=== PATIENT | female | born 1960 | race Two or more races ===

== ENCOUNTER 2018-01-27 19:57 | Inpatient (IN) | payer MEDICAID, OTHER ==
[~2018-01-27] VITALS: Ht 149.9 cm; Wt 113.0 kg
[2018-01-27] MEDS ORDERED: ALBUTEROL SULF 2.5 MG/0.5ML(0.5%) NEB SOLN NEB ONE (20:15)
[2018-01-27] MEDS ORDERED: IPRATROPIUM BROM 0.5 MG/2.5ML INH SOL NEB ONE (20:15)
[2018-01-27 20:59] LABS: Basophils # (auto) 0 uL; Basophils % (auto) 0.4 % (0.0-2.0); Eosinophils # (auto) 0.1 uL; Eosinophils % (auto) 0.6 % (0.0-7.0); Hematocrit 45.6 % (36.0-46.0); Hemoglobin 14.4 g/dL (12.2-16.2); Lymphocytes # (auto) 1.3 uL; Lymphocytes % (auto) 14.8 % (10.0-50.0); Mean Corpuscular Hgb Conc. 31.5 g/dL (32.0-36.0); Mean Corpuscular Volume 92.1 fL (80.0-100.0); Monocytes # (auto) 0.7 uL; Monocytes % (auto) 7.7 % (0.0-12.0); Neutrophils % (auto) 76.5 % (37.0-80.0); Nucleated Red Blood Cells % 0.1 %; Platelet Count (auto) 217 10^3/uL (140-450); Red Blood Cells 4.95 10^6/uL (4.0-5.20); Red Cell Distribution Width 16.9 % (11.8-14.3); White Blood Cell 9.1 10^3/uL (4.4-10.8)
[2018-01-27 21:06] LABS: INR 1.18 (0.9-1.15); Partial Thromboplastin Time 27.9 sec (22.64-33.71); Prothrombin Time 12.9 sec (9.37-12.3)
[2018-01-27 21:11] LABS: Alanine Aminotransferase 22 U/L (13-56); Albumin 2.6 g/dL (3.4-5.0); Anion Gap 6 (5-15); Aspartate Aminotransferase 21 U/L (15-37); BUN/Creatinine Ratio 9.1; Blood Urea Nitrogen 8 mg/dL (7-18); Calcium 7.4 mg/dL (8.5-10.1); Carbon Dioxide 35 mmol/L (21-32); Chloride 102 mmol/L (98-107); GFR African American 85 mL/min; GFR Non-African American 70 mL/min; Glucose 112 mg/dL (74-106); Magnesium 1.9 mg/dL (1.6-2.6); Potassium 3.6 mmol/L (3.5-5.1); Sodium 143 mmol/L (136-145)
[2018-01-27 21:16] LABS: Alkaline Phosphatase 85 U/L (45-117); Bilirubin, Total 0.9 mg/dL (0.2-1.0); Total Protein 6.2 g/dL (6.4-8.2)
[2018-01-28] VITALS (9 sets, daily range): BP systolic 105–123; BP diastolic 48–82
[2018-01-28] MEDS ORDERED: FUROSEMIDE 40 MG/4 ML VIAL IV ONE ×2 (02:00→02:45)
[2018-01-28] MEDS ORDERED: ONDANSETRON HCL 4 MG/2 ML VIAL IV ONE (02:45)
[2018-01-28] MEDS ORDERED: ONDANSETRON ODT 4 MG TAB PO ONE (03:00)
[2018-01-28] MEDS ORDERED: cloNIDine HCL 0.1 MG TAB PO PRN (03:15)
[2018-01-28] MEDS ORDERED: MORPHINE SULFATE 4 MG/ML SYR/VIAL IV PRN (03:15)
[2018-01-28] MEDS ORDERED: TEMAZEPAM 15 MG CAP PO PRN (03:15)
[2018-01-28] MEDS ORDERED: ONDANSETRON HCL 4 MG/2 ML VIAL IV PRN (03:15)
[2018-01-28] MEDS ORDERED: ACETAMINOPHEN 325 MG TAB PO PRN (03:15)
[2018-01-28] MEDS ORDERED: NITROGLYCERIN 0.4 MG SL TAB SL PRN (03:15)
[2018-01-28] MEDS ORDERED: HYDROcodone-ACET 5/325MG TAB PO PRN (03:15)
[2018-01-28] MEDS ORDERED: IPRATROPIUM BROM 0.5 MG/2.5ML INH SOL NEB PRN (03:15)
[2018-01-28] MEDS ORDERED: ALBUTEROL SULF 2.5 MG/0.5ML(0.5%) NEB SOLN NEB PRN (03:15)
[2018-01-28] MEDS ORDERED: FUROSEMIDE 20 MG/2 ML VIAL IV SCH (06:00)
[2018-01-28 07:11] LABS: Urine Bacteria NONE SEEN /hpf (None Seen); Urine Blood Negative /uL (Negative); Urine Specific Gravity 1.005 (1.001-1.035); Urine WBC None Seen /hpf (0 - 5)
[2018-01-28] MEDS ORDERED: LORazepam 2MG/ML-1ML VIAL IV PRN (09:30)
[2018-01-28] MEDS ORDERED: FAMOTIDINE 20 MG TAB PO SCH (10:00)
[2018-01-28] MEDS ORDERED: BISACODYL 10 MG RECT SUPP PR ONE (10:15)
[2018-01-28] MEDS ORDERED: PANTOPRAZOLE 40 MG/10 ML VIAL IV ONE (10:15)
[2018-01-28] MEDS ORDERED: FUROSEMIDE 20 MG/2 ML VIAL IV ONE (10:15)
[2018-01-28 10:35] LABS: BUN/Creatinine Ratio 6.7; Calcium 7.8 mg/dL (8.5-10.1); Potassium 3.8 mmol/L (3.5-5.1)
[2018-01-28] MEDS: BUDESONIDE (INHALATION) 0.5 MG/2 ML NEB NEB SCH ×2 (11:00→18:09)
[2018-01-28] MEDS: ENOXAPARIN SOD 40 MG/0.4 ML SYRINGE SC SCH (11:26)
[2018-01-28] MEDS: DOXYCYCLINE 100MG/250ML 100 ML IV SCH ×2 (11:27→22:20)
[2018-01-28] MEDS ORDERED: MIDAZOLAM DRIP 50 mg/50mL 50 ML IV ONE (12:10)
[2018-01-28] MEDS ORDERED: MIDAZOLAM HCL 5 MG/ML-1ML VIAL ONE ×2 (12:12→12:26)
[2018-01-28] MEDS: MIDAZOLAM DRIP 50 mg/50mL 50 ML IV SCH (12:27)
[2018-01-28] MEDS ORDERED: NOREPINEPHRINE 8 MG/250ML KIT 250 ML IV SCH (12:49)
[2018-01-28] MEDS ORDERED: fentaNYL Drip 2500mCg/250mlNS 250 ML IV ONE (12:55)
[2018-01-28] MEDS: fentaNYL Drip 2500mCg/250mlNS 250 ML IV SCH (12:55)
[2018-01-28] MEDS ORDERED: LORazepam 2MG/ML-1ML VIAL ONE (13:17)
[2018-01-28] MEDS: NOREPINEPHRINE 8 MG/250ML KIT 250 ML IV SCH (13:40)
[2018-01-28 13:57] LABS: Alcohol, Urine < 3.0 mg/dL (0-5); Amphetamine Screen, Urine NEGATIVE (NEGATIVE); Barbiturate Scree,Urine NEGATIVE (NEGATIVE); Benzodiazephine Screen, Urine NEGATIVE (NEGATIVE); Cannabinoid Screen, Urine NEGATIVE (NEGATIVE); Cocaine Screen, Urine NEGATIVE (NEGATIVE); Opiate Scree,Urine NEGATIVE (NEGATIVE); Phencyclidine Screen, Urine NEGATIVE (NEGATIVE)
[2018-01-28] MEDS ORDERED: LORazepam 2MG/ML-1ML VIAL IV ONE (14:00)
[2018-01-28] MEDS: ALBUTEROL SULF 2.5 MG/0.5ML(0.5%) NEB SOLN NEB SCH ×3 (14:10→22:21)
[2018-01-28] MEDS: IPRATROPIUM BROM 0.5 MG/2.5ML INH SOL NEB SCH ×3 (14:10→22:21)
[2018-01-28] MEDS ORDERED: MIDAZOLAM HCL 5 MG/ML-1ML VIAL IV ONE ×2 (14:30)
[2018-01-28] MEDS: PROPOFOL 100 ML IV SCH (14:36)
[2018-01-28] MEDS ORDERED: FUROSEMIDE INJECTION 500 MG in D5W 5% 450 ML IV SCH (14:45)
[2018-01-28] MEDS: methylPREDNISolone SOD SUCC 40 MG/ML VL IV SCH ×2 (14:47→21:57)
[2018-01-28] MEDS ORDERED: FUROSEMIDE 40 MG/4 ML VIAL IV SCH (18:00)
[2018-01-29] VITALS (70 sets, daily range): BP systolic 87–116; BP diastolic 43–67
[2018-01-29] MEDS: ALBUTEROL SULF 2.5 MG/0.5ML(0.5%) NEB SOLN NEB SCH ×6 (02:24→22:14)
[2018-01-29] MEDS: IPRATROPIUM BROM 0.5 MG/2.5ML INH SOL NEB SCH ×6 (02:24→22:14)
[2018-01-29] MEDS: methylPREDNISolone SOD SUCC 40 MG/ML VL IV SCH ×3 (06:00→22:10)
[2018-01-29] MEDS: BUDESONIDE (INHALATION) 0.5 MG/2 ML NEB NEB SCH ×2 (06:33→18:05)
[2018-01-29] MEDS: PROPOFOL 100 ML IV SCH ×2 (07:39→17:58)
[2018-01-29 08:10] LABS: Basophils # (auto) 0 uL; Basophils % (auto) 0.1 % (0.0-2.0); Eosinophils # (auto) 0 uL; Hematocrit 45.6 % (36.0-46.0); Hemoglobin 14.7 g/dL (12.2-16.2); Lymphocytes # (auto) 0.4 uL; Lymphocytes % (auto) 4.5 % (10.0-50.0); Mean Corpuscular Hgb Conc. 32.2 g/dL (32.0-36.0); Mean Corpuscular Volume 89.9 fL (80.0-100.0); Monocytes # (auto) 0.4 uL; Monocytes % (auto) 4.2 % (0.0-12.0); Neutrophils # (auto) 8.3 uL; Neutrophils % (auto) 91.2 % (37.0-80.0); Platelet Count (auto) 217 10^3/uL (140-450); Red Blood Cells 5.07 10^6/uL (4.0-5.20); Red Cell Distribution Width 16.8 % (11.8-14.3); White Blood Cell 9.1 10^3/uL (4.4-10.8)
[2018-01-29 08:31] LABS: Albumin 2.7 g/dL (3.4-5.0); BUN/Creatinine Ratio 8.6; Calcium 7.5 mg/dL (8.5-10.1); Potassium 3.4 mmol/L (3.5-5.1); Total Protein 6.2 g/dL (6.4-8.2)
[2018-01-29] MEDS: DOXYCYCLINE 100MG/250ML 100 ML IV SCH ×2 (10:55→22:15)
[2018-01-29] MEDS: PANTOPRAZOLE 40 MG/10 ML VIAL IV SCH (10:55)
[2018-01-29] MEDS: ENOXAPARIN SOD 40 MG/0.4 ML SYRINGE SC SCH (10:55)
[2018-01-29] MEDS: MIDAZOLAM DRIP 50 mg/50mL 50 ML IV SCH ×4 (10:58→23:00)
[2018-01-29] MEDS ORDERED: FUROSEMIDE INJECTION 500 MG in D5W 5% 450 ML IV SCH (11:45)
[2018-01-29] MEDS ORDERED: LEVOTHYROXINE SODIUM 100 MCG/5 ML INJ IV ONE (12:30)
[2018-01-29] MEDS: fentaNYL Drip 2500mCg/250mlNS 250 ML IV SCH (12:50)
[2018-01-29] MEDS: NOREPINEPHRINE 8 MG/250ML KIT 250 ML IV SCH (13:40)
[2018-01-29] MEDS ORDERED: LIDOCAINE 1% (LOCAL ANESTH.) PF 5ml SDV ID ONE (17:15)
[2018-01-29] MEDS: POTASSIUM CHL 20MEQ/100ML 100 ML IV SCH ×2 (17:57→19:45)
[2018-01-29] MEDS: SODIUM CHLOR 0.9% PF (SALINE LOCK) 10ML VIAL/SYR IV SCH (22:10)
[2018-01-30] VITALS (104 sets, daily range): BP systolic 84–112; BP diastolic 34–67
[2018-01-30] MEDS: MIDAZOLAM DRIP 50 mg/50mL 50 ML IV SCH ×5 (02:00→19:30)
[2018-01-30] MEDS: IPRATROPIUM BROM 0.5 MG/2.5ML INH SOL NEB SCH ×6 (02:17→22:46)
[2018-01-30] MEDS: ALBUTEROL SULF 2.5 MG/0.5ML(0.5%) NEB SOLN NEB SCH ×6 (02:17→22:46)
[2018-01-30 03:59] LABS: Basophils # (auto) 0 uL; Basophils % (auto) 0.4 % (0.0-2.0); Eosinophils # (auto) 0 uL; Hematocrit 46.8 % (36.0-46.0); Hemoglobin 14.8 g/dL (12.2-16.2); Lymphocytes # (auto) 0.3 uL; Lymphocytes % (auto) 2.7 % (10.0-50.0); Mean Corpuscular Hemoglobin 28.4 pg (28.0-32.0); Mean Corpuscular Hgb Conc. 31.6 g/dL (32.0-36.0); Mean Corpuscular Volume 89.7 fL (80.0-100.0); Monocytes # (auto) 0.4 uL; Monocytes % (auto) 3.7 % (0.0-12.0); Neutrophils # (auto) 9.8 uL; Neutrophils % (auto) 93.2 % (37.0-80.0); Platelet Count (auto) 192 10^3/uL (140-450); Red Blood Cells 5.21 10^6/uL (4.0-5.20); Red Cell Distribution Width 16.5 % (11.8-14.3); White Blood Cell 10.5 10^3/uL (4.4-10.8)
[2018-01-30 04:23] LABS: Albumin 2.7 g/dL (3.4-5.0); BUN/Creatinine Ratio 16.7; Bilirubin, Total 0.8 mg/dL (0.2-1.0); Calcium 8.2 mg/dL (8.5-10.1); Potassium 3.4 mmol/L (3.5-5.1); Total Protein 6.2 g/dL (6.4-8.2)
[2018-01-30] MEDS: methylPREDNISolone SOD SUCC 40 MG/ML VL IV SCH ×3 (06:00→21:26)
[2018-01-30] MEDS: SODIUM CHLOR 0.9% PF (SALINE LOCK) 10ML VIAL/SYR IV SCH ×2 (10:00→21:27)
[2018-01-30] MEDS: BUDESONIDE (INHALATION) 0.5 MG/2 ML NEB NEB SCH ×2 (10:06→18:25)
[2018-01-30] MEDS: PANTOPRAZOLE 40 MG/10 ML VIAL IV SCH (10:38)
[2018-01-30] MEDS: acetaZOLAMIDE SODIUM 500 MG VL IV SCH (10:39)
[2018-01-30] MEDS: ENOXAPARIN SOD 40 MG/0.4 ML SYRINGE SC SCH (10:39)
[2018-01-30] MEDS: LEVOTHYROXINE SODIUM 100 MCG/5 ML INJ IV SCH (10:39)
[2018-01-30] MEDS: fentaNYL Drip 2500mCg/250mlNS 250 ML IV SCH (10:40)
[2018-01-30] MEDS: DOXYCYCLINE 100MG/250ML 100 ML IV SCH (10:40)
[2018-01-30] MEDS ORDERED: ACETYLCYSTEINE 10 %(100MG/ML) SOL 4ML NEB SCH (12:00)
[2018-01-30] MEDS ORDERED: POTASSIUM CHL 10% (20 MEQ/15ML) 15ml ORAL SOLN GT ONE (12:00)
[2018-01-30] MEDS: ALBUMIN 25% 100 ML IV SCH ×2 (13:24→19:30)
[2018-01-30] MEDS: NOREPINEPHRINE 8 MG/250ML KIT 250 ML IV SCH (13:26)
[2018-01-30] MEDS: FREE WATER GT SCH ×3 (13:26→21:27)
[2018-01-30] MEDS: ACETYLCYSTEINE 10 %(100MG/ML) SOL 4ML NEB SCH ×2 (14:06→18:25)
[2018-01-30] MEDS: Nutren Pulmonary 1 Liter GT SCH (14:50)
[2018-01-30] MEDS: DOXYCYCLINE 100MG/250ML 250 ML IV SCH (21:26)
[2018-01-31] VITALS (105 sets, daily range): BP systolic 86–130; BP diastolic 34–73
[2018-01-31] MEDS: FREE WATER GT SCH ×6 (02:00→21:21)
[2018-01-31] MEDS: ALBUTEROL SULF 2.5 MG/0.5ML(0.5%) NEB SOLN NEB SCH ×6 (02:39→22:16)
[2018-01-31] MEDS: IPRATROPIUM BROM 0.5 MG/2.5ML INH SOL NEB SCH ×6 (02:39→22:16)
[2018-01-31] MEDS: ACETYLCYSTEINE 10 %(100MG/ML) SOL 4ML NEB SCH ×4 (02:40→22:16)
[2018-01-31] MEDS: ALBUMIN 25% 100 ML IV SCH (03:24)
[2018-01-31] MEDS: MIDAZOLAM DRIP 50 mg/50mL 50 ML IV SCH ×5 (03:26→20:20)
[2018-01-31 04:16] LABS: Basophils # (auto) 0 uL; Basophils % (auto) 0.1 % (0.0-2.0); Eosinophils # (auto) 0 uL; Hematocrit 38.2 % (36.0-46.0); Hemoglobin 12.1 g/dL (12.2-16.2); Lymphocytes # (auto) 0.3 uL; Mean Corpuscular Hemoglobin 28.9 pg (28.0-32.0); Mean Corpuscular Hgb Conc. 31.7 g/dL (32.0-36.0); Mean Corpuscular Volume 91.1 fL (80.0-100.0); Monocytes # (auto) 0.3 uL; Monocytes % (auto) 3.4 % (0.0-12.0); Neutrophils # (auto) 8.3 uL; Neutrophils % (auto) 93.5 % (37.0-80.0); Platelet Count (auto) 156 10^3/uL (140-450); Red Cell Distribution Width 16.7 % (11.8-14.3); White Blood Cell 8.9 10^3/uL (4.4-10.8)
[2018-01-31 04:29] LABS: BUN/Creatinine Ratio 30.8; Calcium 6.9 mg/dL (8.5-10.1)
[2018-01-31 04:31] LABS: Potassium 2.7 mmol/L (3.5-5.1)
[2018-01-31] MEDS: methylPREDNISolone SOD SUCC 40 MG/ML VL IV SCH ×3 (05:21→21:21)
[2018-01-31] MEDS: POTASSIUM CHL 20MEQ/100ML 100 ML IV SCH ×2 (05:52→07:33)
[2018-01-31] MEDS ORDERED: POTASSIUM CHL 20MEQ/100ML 100 ML IV ONE (05:52)
[2018-01-31] MEDS: ENOXAPARIN SOD 40 MG/0.4 ML SYRINGE SC SCH (09:48)
[2018-01-31] MEDS: LEVOTHYROXINE SODIUM 100 MCG/5 ML INJ IV SCH (09:48)
[2018-01-31] MEDS: PANTOPRAZOLE 40 MG/10 ML VIAL IV SCH (09:48)
[2018-01-31] MEDS: acetaZOLAMIDE SODIUM 500 MG VL IV SCH (09:48)
[2018-01-31 09:49] LABS: Magnesium 2.3 mg/dL (1.6-2.6); Phosphorus 3.1 mg/dL (2.5-4.90)
[2018-01-31] MEDS: DOXYCYCLINE 100MG/250ML 250 ML IV SCH ×2 (09:50→21:22)
[2018-01-31] MEDS: SODIUM CHLOR 0.9% PF (SALINE LOCK) 10ML VIAL/SYR IV SCH ×2 (09:50→21:21)
[2018-01-31] MEDS: BUDESONIDE (INHALATION) 0.5 MG/2 ML NEB NEB SCH ×2 (10:40→22:16)
[2018-01-31] MEDS ORDERED: POTASSIUM CHL 10% (20 MEQ/15ML) 15ml ORAL SOLN GT ONE (11:15)
[2018-01-31] MEDS ORDERED: FUROSEMIDE 40 MG/4 ML VIAL IV ONE (11:15)
[2018-01-31] MEDS: fentaNYL Drip 2500mCg/250mlNS 250 ML IV SCH ×2 (12:41→18:41)
[2018-01-31] MEDS: NOREPINEPHRINE 8 MG/250ML KIT 250 ML IV SCH ×2 (13:40→16:18)
[2018-01-31] MEDS: PROPOFOL 100 ML IV SCH (13:40)
[2018-01-31] MEDS: FUROSEMIDE 40 MG/4 ML VIAL IV SCH (17:29)
[2018-01-31] MEDS: POTASSIUM CHL 10% (20 MEQ/15ML) 15ml ORAL SOLN GT SCH (21:21)
[2018-02-01] VITALS (95 sets, daily range): BP systolic 92–138; BP diastolic 48–79
[2018-02-01] MEDS: FREE WATER GT SCH ×6 (01:40→22:15)
[2018-02-01] MEDS: ALBUTEROL SULF 2.5 MG/0.5ML(0.5%) NEB SOLN NEB SCH ×7 (02:00→22:26)
[2018-02-01] MEDS: IPRATROPIUM BROM 0.5 MG/2.5ML INH SOL NEB SCH ×7 (02:00→22:26)
[2018-02-01 04:58] LABS: BUN/Creatinine Ratio 38.1; Calcium 8.8 mg/dL (8.5-10.1); Potassium 4.3 mmol/L (3.5-5.1)
[2018-02-01] MEDS: methylPREDNISolone SOD SUCC 40 MG/ML VL IV SCH ×3 (05:10→22:12)
[2018-02-01] MEDS: FUROSEMIDE 40 MG/4 ML VIAL IV SCH ×2 (05:10→17:42)
[2018-02-01] MEDS: ACETYLCYSTEINE 10 %(100MG/ML) SOL 4ML NEB SCH ×3 (06:01→22:26)
[2018-02-01] MEDS: BUDESONIDE (INHALATION) 0.5 MG/2 ML NEB NEB SCH ×2 (09:34→22:26)
[2018-02-01] MEDS: ENOXAPARIN SOD 40 MG/0.4 ML SYRINGE SC SCH (10:00)
[2018-02-01] MEDS: SODIUM CHLOR 0.9% PF (SALINE LOCK) 10ML VIAL/SYR IV SCH ×2 (10:19→22:13)
[2018-02-01] MEDS: PANTOPRAZOLE 40 MG/10 ML VIAL IV SCH (10:19)
[2018-02-01] MEDS: LEVOTHYROXINE SODIUM 100 MCG/5 ML INJ IV SCH (10:19)
[2018-02-01] MEDS: POTASSIUM CHL 10% (20 MEQ/15ML) 15ml ORAL SOLN GT SCH ×2 (10:19→22:14)
[2018-02-01] MEDS: DOXYCYCLINE 100MG/250ML 250 ML IV SCH ×2 (10:20→22:10)
[2018-02-01] MEDS: MIDAZOLAM DRIP 50 mg/50mL 50 ML IV SCH ×3 (10:21→22:27)
[2018-02-01] MEDS ORDERED: ENOXAPARIN SOD 120 MG/0.8 ML SYRINGE SC ONE (11:45)
[2018-02-01] MEDS: PROPOFOL 100 ML IV SCH (13:40)
[2018-02-01] MEDS: Nutren Pulmonary 1 Liter GT SCH (15:17)
[2018-02-01] MEDS: ENOXAPARIN SOD 100 MG/1 ML SYRINGE SC SCH (22:15)
[2018-02-02] VITALS (106 sets, daily range): BP systolic 94–125; BP diastolic 34–72
[2018-02-02] MEDS: FREE WATER GT SCH ×6 (02:00→23:05)
[2018-02-02] MEDS: fentaNYL Drip 2500mCg/250mlNS 250 ML IV SCH ×2 (03:04→15:50)
[2018-02-02] MEDS: MIDAZOLAM DRIP 50 mg/50mL 50 ML IV SCH ×5 (03:16→18:40)
[2018-02-02] MEDS: IPRATROPIUM BROM 0.5 MG/2.5ML INH SOL NEB SCH ×6 (03:40→22:19)
[2018-02-02] MEDS: ALBUTEROL SULF 2.5 MG/0.5ML(0.5%) NEB SOLN NEB SCH ×6 (03:40→22:19)
[2018-02-02 03:58] LABS: Basophils # (auto) 0 uL; Eosinophils # (auto) 0 uL; Hematocrit 46.4 % (36.0-46.0); Lymphocytes # (auto) 0.2 uL; Lymphocytes % (auto) 2.5 % (10.0-50.0); Mean Corpuscular Hemoglobin 29.1 pg (28.0-32.0); Mean Corpuscular Hgb Conc. 32.4 g/dL (32.0-36.0); Mean Corpuscular Volume 89.8 fL (80.0-100.0); Monocytes # (auto) 0.5 uL; Monocytes % (auto) 7.5 % (0.0-12.0); Neutrophils # (auto) 6.3 uL; Platelet Count (auto) 170 10^3/uL (140-450); Red Blood Cells 5.16 10^6/uL (4.0-5.20); Red Cell Distribution Width 16.8 % (11.8-14.3)
[2018-02-02 04:14] LABS: BUN/Creatinine Ratio 29.7; Calcium 8.7 mg/dL (8.5-10.1); Potassium 3.6 mmol/L (3.5-5.1)
[2018-02-02 04:30] LABS: INR 1.19 (0.9-1.15); Partial Thromboplastin Time 32.6 sec (22.64-33.71)
[2018-02-02] MEDS: FUROSEMIDE 40 MG/4 ML VIAL IV SCH ×3 (06:08→22:09)
[2018-02-02] MEDS: methylPREDNISolone SOD SUCC 40 MG/ML VL IV SCH ×3 (06:08→22:09)
[2018-02-02] MEDS: ACETYLCYSTEINE 10 %(100MG/ML) SOL 4ML NEB SCH ×3 (06:35→22:18)
[2018-02-02] MEDS: POTASSIUM CHL 10% (20 MEQ/15ML) 15ml ORAL SOLN GT SCH ×2 (10:11→23:04)
[2018-02-02] MEDS: SODIUM CHLOR 0.9% PF (SALINE LOCK) 10ML VIAL/SYR IV SCH ×2 (10:11→22:10)
[2018-02-02] MEDS: DOXYCYCLINE 100MG/250ML 250 ML IV SCH (10:11)
[2018-02-02] MEDS: LEVOTHYROXINE SODIUM 100 MCG/5 ML INJ IV SCH (10:11)
[2018-02-02] MEDS: PANTOPRAZOLE 40 MG/10 ML VIAL IV SCH ×2 (10:11→22:08)
[2018-02-02] MEDS: ENOXAPARIN SOD 100 MG/1 ML SYRINGE SC SCH (10:12)
[2018-02-02] MEDS: BUDESONIDE (INHALATION) 0.5 MG/2 ML NEB NEB SCH ×2 (10:15→18:52)
[2018-02-02] MEDS ORDERED: LEVOFLOXACIN 750MG 150 ML IV ONE (12:45)
[2018-02-02] MEDS ORDERED: LACTULOSE 20Gm/30ML SOLN GT ONE (13:00)
[2018-02-02] MEDS: PROPOFOL 100 ML IV SCH (13:36)
[2018-02-02] MEDS: NOREPINEPHRINE 8 MG/250ML KIT 250 ML IV SCH (13:40)
[2018-02-02] MEDS: METOCLOPRAMIDE HCL 10 MG/10ml ORAL soln GT SCH ×2 (13:44→22:06)
[2018-02-02 20:12] LABS: Basophils # (auto) 0 uL; Basophils % (auto) 0.1 % (0.0-2.0); Eosinophils # (auto) 0 uL; Hematocrit 47.7 % (36.0-46.0); Lymphocytes # (auto) 0.2 uL; Lymphocytes % (auto) 2.2 % (10.0-50.0); Mean Corpuscular Hemoglobin 28.2 pg (28.0-32.0); Mean Corpuscular Hgb Conc. 31.5 g/dL (32.0-36.0); Mean Corpuscular Volume 89.5 fL (80.0-100.0); Monocytes # (auto) 0.6 uL; Monocytes % (auto) 6.8 % (0.0-12.0); Neutrophils # (auto) 7.4 uL; Neutrophils % (auto) 90.9 % (37.0-80.0); Nucleated Red Blood Cells % 0.1 %; Platelet Count (auto) 166 10^3/uL (140-450); Red Blood Cells 5.33 10^6/uL (4.0-5.20); Red Cell Distribution Width 16.8 % (11.8-14.3); White Blood Cell 8.1 10^3/uL (4.4-10.8)
[2018-02-02] MEDS ORDERED: HEPARIN SODIUM (PORCINE) 5000 UNITS/ML 1ML VIAL IV ONE (20:15)
[2018-02-02 20:25] LABS: INR 1.22 (0.9-1.15); Partial Thromboplastin Time 34.6 sec (22.64-33.71); Prothrombin Time 13.3 sec (9.37-12.3)
[2018-02-02] MEDS: HEPARIN DRIP/D5W 100UNITS/ML 250 ML IV SCH (20:25)
[2018-02-02] MEDS: ATRACURIUM BESYLATE 1,000 MG in D5W 5% 150 ML IV SCH (22:38)
[2018-02-02] MEDS: LACTULOSE 20Gm/30ML SOLN GT SCH (23:04)
[2018-02-03] VITALS (107 sets, daily range): BP systolic 89–159; BP diastolic 46–94
[2018-02-03] MEDS: MIDAZOLAM DRIP 50 mg/50mL 50 ML IV SCH ×5 (00:28→22:18)
[2018-02-03] MEDS: FREE WATER GT SCH ×5 (01:41→22:00)
[2018-02-03] MEDS: IPRATROPIUM BROM 0.5 MG/2.5ML INH SOL NEB SCH ×6 (02:37→22:09)
[2018-02-03] MEDS: ALBUTEROL SULF 2.5 MG/0.5ML(0.5%) NEB SOLN NEB SCH ×6 (02:37→22:09)
[2018-02-03 03:20] LABS: Basophils # (auto) 0 uL; Basophils % (auto) 0.1 % (0.0-2.0); Eosinophils # (auto) 0 uL; Hematocrit 48.2 % (36.0-46.0); Hemoglobin 15.3 g/dL (12.2-16.2); Lymphocytes # (auto) 0.2 uL; Lymphocytes % (auto) 2.7 % (10.0-50.0); Mean Corpuscular Hemoglobin 28.3 pg (28.0-32.0); Mean Corpuscular Hgb Conc. 31.8 g/dL (32.0-36.0); Monocytes # (auto) 0.7 uL; Monocytes % (auto) 8.9 % (0.0-12.0); Neutrophils # (auto) 6.7 uL; Neutrophils % (auto) 88.3 % (37.0-80.0); Platelet Count (auto) 161 10^3/uL (140-450); Red Blood Cells 5.42 10^6/uL (4.0-5.20); Red Cell Distribution Width 17.1 % (11.8-14.3); White Blood Cell 7.6 10^3/uL (4.4-10.8)
[2018-02-03 03:45] LABS: Albumin 3.1 g/dL (3.4-5.0); BUN/Creatinine Ratio 33.3; Calcium 8.4 mg/dL (8.5-10.1); Potassium 4.1 mmol/L (3.5-5.1)
[2018-02-03 03:47] LABS: Bilirubin, Total 2.2 mg/dL (0.2-1.0); Total Protein 6.2 g/dL (6.4-8.2)
[2018-02-03 04:06] LABS: INR 1.26 (0.9-1.15)
[2018-02-03 04:08] LABS: Partial Thromboplastin Time > 170.00 sec (22.64-33.71)
[2018-02-03] MEDS: fentaNYL Drip 2500mCg/250mlNS 250 ML IV SCH ×2 (05:35→22:19)
[2018-02-03] MEDS: ACETYLCYSTEINE 10 %(100MG/ML) SOL 4ML NEB SCH ×3 (05:55→18:32)
[2018-02-03] MEDS: methylPREDNISolone SOD SUCC 40 MG/ML VL IV SCH ×3 (06:04→22:20)
[2018-02-03] MEDS: FUROSEMIDE 40 MG/4 ML VIAL IV SCH (06:05)
[2018-02-03] MEDS: METOCLOPRAMIDE HCL 10 MG/10ml ORAL soln GT SCH ×3 (06:05→22:20)
[2018-02-03] MEDS: BUDESONIDE (INHALATION) 0.5 MG/2 ML NEB NEB SCH ×2 (09:56→18:32)
[2018-02-03] MEDS: LEVOFLOXACIN 750MG 150 ML IV SCH (10:40)
[2018-02-03] MEDS: SODIUM CHLOR 0.9% PF (SALINE LOCK) 10ML VIAL/SYR IV SCH ×2 (10:40→22:20)
[2018-02-03] MEDS: LACTULOSE 20Gm/30ML SOLN GT SCH ×2 (10:40→22:18)
[2018-02-03] MEDS: PANTOPRAZOLE 40 MG/10 ML VIAL IV SCH ×2 (10:40→22:20)
[2018-02-03] MEDS: LEVOTHYROXINE SODIUM 100 MCG/5 ML INJ IV SCH (10:41)
[2018-02-03] MEDS: HEPARIN DRIP/D5W 100UNITS/ML 250 ML IV SCH ×2 (10:43→21:15)
[2018-02-03] MEDS: POTASSIUM CHL 10% (20 MEQ/15ML) 15ml ORAL SOLN GT SCH ×2 (10:43→22:20)
[2018-02-03] MEDS: NOREPINEPHRINE 8 MG/250ML KIT 250 ML IV SCH (13:40)
[2018-02-03] MEDS: PROPOFOL 100 ML IV SCH (13:40)
[2018-02-03 14:09] LABS: INR 1.26 (0.9-1.15); Prothrombin Time 13.8 sec (9.37-12.3)
[2018-02-03 14:12] LABS: Partial Thromboplastin Time 159.9 sec (22.64-33.71)
[2018-02-03] MEDS: ATRACURIUM BESYLATE 1,000 MG in D5W 5% 150 ML IV SCH (21:17)
[2018-02-03] MEDS ORDERED: TPN PER PHARMACY 0 ML IV SCH (21:30)
[2018-02-03] MEDS ORDERED: AMINO ACID ELECTROLYTE INFUSIO 1,000 ML IV ONE (22:00)
[2018-02-04] VITALS (104 sets, daily range): BP systolic 98–134; BP diastolic 55–83
[2018-02-04] MEDS ORDERED: DEXTROSE (50%) 50ML SYRG IV SCH
[2018-02-04] MEDS: ACCU-CHEK COMFORT CURVE STRIP VI SCH ×4 (00:25→18:00)
[2018-02-04] MEDS: InsuLIN REG 1unit/0.01ml Soln (100units/ml) SC SCH ×4 (00:26→18:41)
[2018-02-04] MEDS: FREE WATER GT SCH ×6 (01:54→21:51)
[2018-02-04] MEDS: ALBUTEROL SULF 2.5 MG/0.5ML(0.5%) NEB SOLN NEB SCH ×6 (02:39→22:17)
[2018-02-04] MEDS: IPRATROPIUM BROM 0.5 MG/2.5ML INH SOL NEB SCH ×6 (02:39→22:17)
[2018-02-04] MEDS: MIDAZOLAM DRIP 50 mg/50mL 50 ML IV SCH ×2 (03:53→15:30)
[2018-02-04 04:00] LABS: Albumin 2.9 g/dL (3.4-5.0); BUN/Creatinine Ratio 42.2; Bilirubin, Total 2.1 mg/dL (0.2-1.0); Calcium 8.1 mg/dL (8.5-10.1); Phosphorus 2.3 mg/dL (2.5-4.90); Potassium 4.3 mmol/L (3.5-5.1); Pre Albumin 33.8 mg/dL (20.0-40.0); Total Protein 5.8 g/dL (6.4-8.2)
[2018-02-04] MEDS: methylPREDNISolone SOD SUCC 40 MG/ML VL IV SCH ×3 (06:24→21:57)
[2018-02-04] MEDS: METOCLOPRAMIDE HCL 10 MG/10ml ORAL soln GT SCH ×3 (06:25→21:51)
[2018-02-04 07:24] LABS: INR 1.22 (0.9-1.15); Partial Thromboplastin Time 58.3 sec (22.64-33.71); Prothrombin Time 13.3 sec (9.37-12.3)
[2018-02-04] MEDS: ACETYLCYSTEINE 10 %(100MG/ML) SOL 4ML NEB SCH ×3 (07:35→22:17)
[2018-02-04] MEDS: BUDESONIDE (INHALATION) 0.5 MG/2 ML NEB NEB SCH ×2 (07:35→18:59)
[2018-02-04] MEDS ORDERED: HEPARIN DRIP/D5W 100UNITS/ML 250 ML IV SCH (08:45)
[2018-02-04] MEDS ORDERED: TEMAZEPAM 15 MG CAP PO PRN (10:00)
[2018-02-04] MEDS ORDERED: LORazepam 2MG/ML-1ML VIAL IV PRN (10:00)
[2018-02-04] MEDS ORDERED: HYDROcodone-ACET 5/325MG TAB PO PRN (10:00)
[2018-02-04] MEDS ORDERED: MORPHINE SULFATE 4 MG/ML SYR/VIAL IV PRN (10:00)
[2018-02-04] MEDS ORDERED: FUROSEMIDE 40 MG/4 ML VIAL IV SCH (10:00)
[2018-02-04 10:46] LABS: Basophils # (auto) 0 uL; Basophils % (auto) 0.3 % (0.0-2.0); Eosinophils # (auto) 0 uL; Hematocrit 48.4 % (36.0-46.0); Hemoglobin 15.1 g/dL (12.2-16.2); Lymphocytes # (auto) 0.2 uL; Lymphocytes % (auto) 2.6 % (10.0-50.0); Mean Corpuscular Hemoglobin 28.4 pg (28.0-32.0); Mean Corpuscular Hgb Conc. 31.2 g/dL (32.0-36.0); Monocytes # (auto) 0.6 uL; Monocytes % (auto) 6.5 % (0.0-12.0); Neutrophils # (auto) 8.7 uL; Neutrophils % (auto) 90.6 % (37.0-80.0); Nucleated Red Blood Cells % 0.2 %; Platelet Count (auto) 158 10^3/uL (140-450); Red Blood Cells 5.32 10^6/uL (4.0-5.20); Red Cell Distribution Width 16.9 % (11.8-14.3); White Blood Cell 9.6 10^3/uL (4.4-10.8)
[2018-02-04] MEDS: SODIUM CHLOR 0.9% PF (SALINE LOCK) 10ML VIAL/SYR IV SCH ×2 (11:37→21:51)
[2018-02-04] MEDS ORDERED: ALTEPLASE (RECOMBINANT) 100 MG in STERILE WATER 100 ML IV SCH (12:00)
[2018-02-04] MEDS: LEVOTHYROXINE SODIUM 100 MCG/5 ML INJ IV SCH (12:21)
[2018-02-04] MEDS: LACTULOSE 20Gm/30ML SOLN GT SCH ×2 (12:21→21:51)
[2018-02-04] MEDS: POTASSIUM CHL 10% (20 MEQ/15ML) 15ml ORAL SOLN GT SCH ×2 (12:21→21:51)
[2018-02-04] MEDS: PANTOPRAZOLE 40 MG/10 ML VIAL IV SCH ×2 (12:21→21:51)
[2018-02-04] MEDS: LEVOFLOXACIN 750MG 150 ML IV SCH (12:22)
[2018-02-04] MEDS: NOREPINEPHRINE 8 MG/250ML KIT 250 ML IV SCH (13:40)
[2018-02-04] MEDS: PROPOFOL 100 ML IV SCH (13:40)
[2018-02-04 15:05] LABS: INR 1.24 (0.9-1.15); Partial Thromboplastin Time 67.6 sec (22.64-33.71); Prothrombin Time 13.5 sec (9.37-12.3)
[2018-02-04] MEDS: fentaNYL Drip 2500mCg/250mlNS 250 ML IV SCH (16:26)
[2018-02-04] MEDS ORDERED: TPN PER PHARMACY IV NR ×10 (20:00)
[2018-02-04 21:37] LABS: INR 1.3 (0.9-1.15); Prothrombin Time 14.2 sec (9.37-12.3)
[2018-02-04 21:51] LABS: Partial Thromboplastin Time 75.2 sec (22.64-33.71)
[2018-02-05] VITALS (95 sets, daily range): BP systolic 47–153; BP diastolic 27–137
[2018-02-05] MEDS: ACCU-CHEK COMFORT CURVE STRIP VI SCH ×4 (01:30→18:30)
[2018-02-05] MEDS: InsuLIN REG 1unit/0.01ml Soln (100units/ml) SC SCH ×4 (01:37→18:00)
[2018-02-05] MEDS: FREE WATER GT SCH ×5 (01:55→20:00)
[2018-02-05] MEDS: IPRATROPIUM BROM 0.5 MG/2.5ML INH SOL NEB SCH ×5 (02:31→22:29)
[2018-02-05] MEDS: ALBUTEROL SULF 2.5 MG/0.5ML(0.5%) NEB SOLN NEB SCH ×4 (02:31→22:29)
[2018-02-05] MEDS: ATRACURIUM BESYLATE 1,000 MG in D5W 5% 150 ML IV SCH ×2 (04:25→20:58)
[2018-02-05 05:53] LABS: Basophils # (auto) 0.1 uL; Basophils % (auto) 0.6 % (0.0-2.0); Eosinophils # (auto) 0 uL; Hematocrit 47.8 % (36.0-46.0); Hemoglobin 14.9 g/dL (12.2-16.2); Lymphocytes # (auto) 0.2 uL; Mean Corpuscular Hemoglobin 28.7 pg (28.0-32.0); Mean Corpuscular Hgb Conc. 31.3 g/dL (32.0-36.0); Mean Corpuscular Volume 91.8 fL (80.0-100.0); Monocytes # (auto) 0.7 uL; Monocytes % (auto) 6.6 % (0.0-12.0); Neutrophils # (auto) 9.8 uL; Neutrophils % (auto) 90.8 % (37.0-80.0); Platelet Count (auto) 141 10^3/uL (140-450); Red Blood Cells 5.21 10^6/uL (4.0-5.20); Red Cell Distribution Width 17.2 % (11.8-14.3); White Blood Cell 10.7 10^3/uL (4.4-10.8)
[2018-02-05] MEDS: METOCLOPRAMIDE HCL 10 MG/10ml ORAL soln GT SCH ×3 (06:00→22:00)
[2018-02-05] MEDS: methylPREDNISolone SOD SUCC 40 MG/ML VL IV SCH ×2 (06:00→18:17)
[2018-02-05 06:02] LABS: INR 1.2 (0.9-1.15); Prothrombin Time 13.1 sec (9.37-12.3)
[2018-02-05] MEDS: BUDESONIDE (INHALATION) 0.5 MG/2 ML NEB NEB SCH ×2 (07:10→18:42)
[2018-02-05] MEDS: ACETYLCYSTEINE 10 %(100MG/ML) SOL 4ML NEB SCH ×2 (07:11→22:29)
[2018-02-05] MEDS: SODIUM CHLOR 0.9% PF (SALINE LOCK) 10ML VIAL/SYR IV SCH ×2 (10:00→22:00)
[2018-02-05] MEDS ORDERED: IOHEXOL 350 MG/ML 100ML IJ ONE (10:20)
[2018-02-05 10:26] LABS: Albumin 2.8 g/dL (3.4-5.0); BUN/Creatinine Ratio 34.9; Bilirubin, Total 2.5 mg/dL (0.2-1.0); Magnesium 2.5 mg/dL (1.6-2.6); Phosphorus 2.8 mg/dL (2.5-4.90); Potassium 5.2 mmol/L (3.5-5.1); Total Protein 5.8 g/dL (6.4-8.2)
[2018-02-05] MEDS ORDERED: FUROSEMIDE 40 MG/4 ML VIAL ONE (11:44)
[2018-02-05] MEDS ORDERED: FUROSEMIDE 100 MG/10ML VIAL IV ONE (11:45)
[2018-02-05] MEDS ORDERED: VANCOMYCIN PER PHARMACY 0 MG IV SCH (12:00)
[2018-02-05] MEDS: PANTOPRAZOLE 40 MG/10 ML VIAL IV SCH ×2 (12:13→22:00)
[2018-02-05] MEDS: LEVOFLOXACIN 750MG 150 ML IV SCH (12:13)
[2018-02-05] MEDS ORDERED: FLUCONAZOLE 200MG/100ML 100 ML IV ONE (12:15)
[2018-02-05] MEDS ORDERED: LIDOCAINE 2%HCL (LOCAL ANESTH.) INJ 20ML MDV ONE (12:26)
[2018-02-05] MEDS: MIDAZOLAM DRIP 50 mg/50mL 50 ML IV SCH ×3 (12:30→20:06)
[2018-02-05] MEDS ORDERED: SILDENAFIL CITRATE 20 MG TAB PO ONE (12:30)
[2018-02-05] MEDS: PROPOFOL 100 ML IV SCH (13:40)
[2018-02-05] MEDS: NOREPINEPHRINE 8 MG/250ML KIT 250 ML IV SCH (13:40)
[2018-02-05] MEDS: POTASSIUM CHL 10% (20 MEQ/15ML) 15ml ORAL SOLN GT SCH ×2 (13:53→22:00)
[2018-02-05] MEDS: NYSTATIN (MOUTH-THROAT) 500,000 UNITS/5 ML SUSP MT SCH ×3 (13:53→22:00)
[2018-02-05] MEDS: LEVOTHYROXINE SODIUM 100 MCG/5 ML INJ IV SCH (13:54)
[2018-02-05] MEDS: LACTULOSE 20Gm/30ML SOLN GT SCH ×2 (14:00→22:00)
[2018-02-05] MEDS: SILDENAFIL CITRATE 20 MG TAB PO SCH ×2 (14:30→20:21)
[2018-02-05] MEDS ORDERED: VANCOMYCIN 1,500 MG in D5W 5% 250 ML IV ONE (14:45)
[2018-02-05 17:24] LABS: Calcium 7.2 mg/dL (8.5-10.1); Potassium 4.3 mmol/L (3.5-5.1)
[2018-02-05] MEDS ORDERED: FUROSEMIDE 40 MG/4 ML VIAL IV SCH (18:00)
[2018-02-05] MEDS ORDERED: FUROSEMIDE 100 MG/10ML VIAL IV SCH (18:00)
[2018-02-05] MEDS ORDERED: FAT EMULSION IV NR ×9 (20:00)
[2018-02-05] MEDS ORDERED: POTASSIUM CHLORIDE IV NR ×9 (20:00)
[2018-02-05] MEDS ORDERED: POTASSIUM PHOSPHATE IV NR ×9 (20:00)
[2018-02-05] MEDS ORDERED: [UNRECOGNIZED DRUG - OTHER] IV NR ×9 (20:00)
[2018-02-05] MEDS: fentaNYL Drip 2500mCg/250mlNS 250 ML IV SCH (20:50)
[2018-02-05] MEDS: VANCOMYCIN 1GM/250ML 250 ML IV SCH (22:00)
[2018-02-06] VITALS (88 sets, daily range): BP systolic 38–177; BP diastolic 20–170
[2018-02-06] MEDS: InsuLIN REG 1unit/0.01ml Soln (100units/ml) SC SCH ×5 (00:30→23:38)
[2018-02-06] MEDS: MIDAZOLAM DRIP 50 mg/50mL 50 ML IV SCH ×5 (01:14→23:37)
[2018-02-06] MEDS: ALBUMIN 25% 100 ML IV SCH ×2 (01:45→10:56)
[2018-02-06] MEDS: FREE WATER GT SCH ×4 (02:00→20:00)
[2018-02-06] MEDS: ALBUTEROL SULF 2.5 MG/0.5ML(0.5%) NEB SOLN NEB SCH ×6 (02:48→22:39)
[2018-02-06] MEDS: IPRATROPIUM BROM 0.5 MG/2.5ML INH SOL NEB SCH ×6 (02:48→22:39)
[2018-02-06 04:01] LABS: Basophils # (auto) 0 uL; Basophils % (auto) 0.3 % (0.0-2.0); Eosinophils # (auto) 0 uL; Hematocrit 44.8 % (36.0-46.0); Hemoglobin 14.1 g/dL (12.2-16.2); Lymphocytes # (auto) 0.2 uL; Lymphocytes % (auto) 1.3 % (10.0-50.0); Mean Corpuscular Hemoglobin 28.3 pg (28.0-32.0); Mean Corpuscular Hgb Conc. 31.5 g/dL (32.0-36.0); Mean Corpuscular Volume 89.7 fL (80.0-100.0); Monocytes # (auto) 0.8 uL; Monocytes % (auto) 5.8 % (0.0-12.0); Neutrophils # (auto) 13.1 uL; Neutrophils % (auto) 92.6 % (37.0-80.0); Platelet Count (auto) 115 10^3/uL (140-450); Red Blood Cells 4.99 10^6/uL (4.0-5.20); Red Cell Distribution Width 17.3 % (11.8-14.3); White Blood Cell 14.1 10^3/uL (4.4-10.8)
[2018-02-06 04:10] LABS: Albumin 2.6 g/dL (3.4-5.0); Calcium 7.9 mg/dL (8.5-10.1); Magnesium 2.5 mg/dL (1.6-2.6); Potassium 5.1 mmol/L (3.5-5.1)
[2018-02-06 04:16] LABS: Bilirubin, Total 3.1 mg/dL (0.2-1.0); Total Protein 5.6 g/dL (6.4-8.2)
[2018-02-06] MEDS: ACCU-CHEK COMFORT CURVE STRIP VI SCH ×5 (06:00→23:37)
[2018-02-06] MEDS: VANCOMYCIN 1GM/250ML 250 ML IV SCH ×2 (06:00→18:30)
[2018-02-06] MEDS: NYSTATIN (MOUTH-THROAT) 500,000 UNITS/5 ML SUSP MT SCH ×4 (06:00→22:00)
[2018-02-06] MEDS: methylPREDNISolone SOD SUCC 40 MG/ML VL IV SCH (06:00)
[2018-02-06] MEDS: METOCLOPRAMIDE HCL 10 MG/10ml ORAL soln GT SCH ×4 (06:00→22:00)
[2018-02-06 06:12] LABS: BUN/Creatinine Ratio 39.3
[2018-02-06] MEDS: ACETYLCYSTEINE 10 %(100MG/ML) SOL 4ML NEB SCH ×2 (06:12→14:03)
[2018-02-06 08:04] LABS: Phosphorus 3.3 mg/dL (2.5-4.90)
[2018-02-06] MEDS ORDERED: MIDAZOLAM HCL 5 MG/ML-1ML VIAL ONE (08:16)
[2018-02-06] MEDS ORDERED: diphenhdrAMINE HCL 50 MG/1 ML VL ONE (08:16)
[2018-02-06] MEDS ORDERED: EPINEPHrine HCL 1 MG/10 ML SYRG ONE (08:16)
[2018-02-06] MEDS ORDERED: fentaNYL CITRATE 100 MCG/2 ML VL ONE (08:16)
[2018-02-06] MEDS ORDERED: LIDOCAINE 2% (LOCAL ANESTH.) PF 5ml SDV ONE (08:17)
[2018-02-06] MEDS ORDERED: GLYCOPYRROLATE 0.2 MG/ML 1ML VIAL ONE ×2 (08:23→08:25)
[2018-02-06] MEDS: fentaNYL Drip 2500mCg/250mlNS 250 ML IV SCH ×3 (08:45→22:00)
[2018-02-06] MEDS: FLUCONAZOLE 200MG/100ML 100 ML IV SCH ×2 (08:45→10:38)
[2018-02-06] MEDS: SODIUM CHLOR 0.9% PF (SALINE LOCK) 10ML VIAL/SYR IV SCH ×2 (08:46→22:00)
[2018-02-06] MEDS: POTASSIUM CHL 10% (20 MEQ/15ML) 15ml ORAL SOLN GT SCH ×2 (08:46→22:00)
[2018-02-06] MEDS: SILDENAFIL CITRATE 20 MG TAB PO SCH ×3 (08:46→20:11)
[2018-02-06] MEDS: ATRACURIUM BESYLATE 1,000 MG in D5W 5% 150 ML IV SCH (09:00)
[2018-02-06] MEDS ORDERED: FUROSEMIDE 100 MG/10ML VIAL IV ONE (09:45)
[2018-02-06] MEDS: PANTOPRAZOLE 40 MG/10 ML VIAL IV SCH ×2 (10:00→22:00)
[2018-02-06] MEDS ORDERED: LACTULOSE 20Gm/30ML SOLN GT SCH (10:00)
[2018-02-06] MEDS: BUDESONIDE (INHALATION) 0.5 MG/2 ML NEB NEB SCH ×2 (10:01→22:39)
[2018-02-06] MEDS: INSULIN LANTUS (GLARGINE) 1 /0.01ml (100units/ml) SC SCH ×2 (10:35→22:00)
[2018-02-06] MEDS: LACTULOSE 20Gm/30ML SOLN GT SCH ×2 (10:38→22:00)
[2018-02-06] MEDS: LEVOTHYROXINE SODIUM 100 MCG/5 ML INJ IV SCH (10:38)
[2018-02-06] MEDS: ENOXAPARIN SOD 40 MG/0.4 ML SYRINGE SC SCH (10:54)
[2018-02-06] MEDS: predniSONE 20 MG TAB PO SCH (10:54)
[2018-02-06] MEDS: LEVOFLOXACIN 750MG 150 ML IV SCH (13:05)
[2018-02-06] MEDS: NOREPINEPHRINE 8 MG/250ML KIT 250 ML IV SCH (13:40)
[2018-02-06] MEDS: PROPOFOL 100 ML IV SCH (13:40)
[2018-02-06] MEDS ORDERED: EPINEPHrine HCL 1 MG/1 ML AMP ONE (14:35)
[2018-02-06] MEDS ORDERED: LIDOCAINE HCL 2% TOP JELLY 5ML TOP ONE (15:17)
[2018-02-06] MEDS ORDERED: FUROSEMIDE 100 MG/10ML VIAL IV SCH (18:00)
[2018-02-06] MEDS: ACETYLCYSTEINE 20%(200MG/ML) SOL 4ML NEB SCH ×2 (18:57→22:39)
[2018-02-06] MEDS ORDERED: TPN PER PHARMACY IV NR ×9 (20:00)
[2018-02-06] MEDS: FUROSEMIDE 100 MG/10ML VIAL IV SCH (22:00)
[2018-02-07] VITALS (96 sets, daily range): BP systolic 46–139; BP diastolic 25–89
[2018-02-07] MEDS: ALBUMIN 25% 100 ML IV SCH (01:23)
[2018-02-07] MEDS: FREE WATER GT SCH ×4 (02:00→20:16)
[2018-02-07] MEDS: VANCOMYCIN 1GM/250ML 250 ML IV SCH ×3 (02:08→17:45)
[2018-02-07] MEDS: ALBUTEROL SULF 2.5 MG/0.5ML(0.5%) NEB SOLN NEB SCH ×6 (02:14→22:11)
[2018-02-07] MEDS: ACETYLCYSTEINE 20%(200MG/ML) SOL 4ML NEB SCH ×6 (02:14→22:11)
[2018-02-07] MEDS: IPRATROPIUM BROM 0.5 MG/2.5ML INH SOL NEB SCH ×5 (02:14→22:11)
[2018-02-07 04:30] LABS: Basophils # (auto) 0.1 uL; Basophils % (auto) 0.5 % (0.0-2.0); Eosinophils # (auto) 0 uL; Hematocrit 40.6 % (36.0-46.0); Hemoglobin 12.9 g/dL (12.2-16.2); Lymphocytes # (auto) 0.3 uL; Lymphocytes % (auto) 1.8 % (10.0-50.0); Mean Corpuscular Hemoglobin 28.2 pg (28.0-32.0); Mean Corpuscular Hgb Conc. 31.7 g/dL (32.0-36.0); Mean Corpuscular Volume 88.7 fL (80.0-100.0); Monocytes # (auto) 1.1 uL; Monocytes % (auto) 7.8 % (0.0-12.0); Neutrophils # (auto) 12.9 uL; Neutrophils % (auto) 89.9 % (37.0-80.0); Platelet Count (auto) 92 10^3/uL (140-450); Red Blood Cells 4.57 10^6/uL (4.0-5.20); Red Cell Distribution Width 16.9 % (11.8-14.3); White Blood Cell 14.3 10^3/uL (4.4-10.8)
[2018-02-07] MEDS: MIDAZOLAM DRIP 50 mg/50mL 50 ML IV SCH ×3 (04:41→21:45)
[2018-02-07 04:43] LABS: Albumin 3.4 g/dL (3.4-5.0); BUN/Creatinine Ratio 33.8; Bilirubin, Total 3.6 mg/dL (0.2-1.0); Calcium 8.5 mg/dL (8.5-10.1); Phosphorus 3.1 mg/dL (2.5-4.90); Potassium 4.6 mmol/L (3.5-5.1); Total Protein 5.9 g/dL (6.4-8.2)
[2018-02-07] MEDS: METOCLOPRAMIDE HCL 10 MG/10ml ORAL soln GT SCH ×3 (05:48→21:45)
[2018-02-07] MEDS: ACCU-CHEK COMFORT CURVE STRIP VI SCH ×4 (05:48→23:49)
[2018-02-07] MEDS: NYSTATIN (MOUTH-THROAT) 500,000 UNITS/5 ML SUSP MT SCH ×4 (05:48→21:45)
[2018-02-07] MEDS: InsuLIN REG 1unit/0.01ml Soln (100units/ml) SC SCH ×4 (05:49→23:49)
[2018-02-07] MEDS: FUROSEMIDE 100 MG/10ML VIAL IV SCH ×2 (06:00→17:45)
[2018-02-07] MEDS: BUDESONIDE (INHALATION) 0.5 MG/2 ML NEB NEB SCH ×2 (06:35→22:12)
[2018-02-07] MEDS: FLUCONAZOLE 200MG/100ML 100 ML IV SCH ×2 (08:27→11:56)
[2018-02-07] MEDS: SILDENAFIL CITRATE 20 MG TAB PO SCH ×3 (08:27→20:16)
[2018-02-07] MEDS: POTASSIUM CHL 10% (20 MEQ/15ML) 15ml ORAL SOLN GT SCH ×2 (10:00→21:45)
[2018-02-07] MEDS: predniSONE 20 MG TAB PO SCH (10:00)
[2018-02-07] MEDS: LACTULOSE 20Gm/30ML SOLN GT SCH ×2 (10:00→21:45)
[2018-02-07] MEDS: PANTOPRAZOLE 40 MG/10 ML VIAL IV SCH ×2 (11:56→21:45)
[2018-02-07] MEDS: LEVOTHYROXINE SODIUM 100 MCG/5 ML INJ IV SCH (11:56)
[2018-02-07] MEDS: SODIUM CHLOR 0.9% PF (SALINE LOCK) 10ML VIAL/SYR IV SCH ×2 (11:58→21:45)
[2018-02-07] MEDS: INSULIN LANTUS (GLARGINE) 1 /0.01ml (100units/ml) SC SCH ×2 (12:01→22:00)
[2018-02-07] MEDS: ENOXAPARIN SOD 40 MG/0.4 ML SYRINGE SC SCH (12:02)
[2018-02-07] MEDS: NOREPINEPHRINE 8 MG/250ML KIT 250 ML IV SCH (13:40)
[2018-02-07] MEDS: PROPOFOL 100 ML IV SCH (13:40)
[2018-02-07] MEDS: LEVOFLOXACIN 750MG 150 ML IV SCH (14:18)
[2018-02-07] MEDS: ATRACURIUM BESYLATE 1,000 MG in D5W 5% 150 ML IV SCH (17:44)
[2018-02-07] MEDS: fentaNYL Drip 2500mCg/250mlNS 250 ML IV SCH (19:45)
[2018-02-07] MEDS ORDERED: TPN PER PHARMACY IV NR ×10 (20:00)
[2018-02-07] MEDS: VANCOMYCIN 1,500 MG in D5W 5% 250 ML IV SCH (22:57)
[2018-02-08] VITALS (101 sets, daily range): BP systolic 46–119; BP diastolic 28–66
[2018-02-08] MEDS: ALBUTEROL SULF 2.5 MG/0.5ML(0.5%) NEB SOLN NEB SCH ×6 (02:06→22:15)
[2018-02-08] MEDS: ACETYLCYSTEINE 20%(200MG/ML) SOL 4ML NEB SCH ×6 (02:07→22:15)
[2018-02-08] MEDS: IPRATROPIUM BROM 0.5 MG/2.5ML INH SOL NEB SCH ×6 (02:07→22:15)
[2018-02-08] MEDS: MIDAZOLAM DRIP 50 mg/50mL 50 ML IV SCH ×4 (02:08→18:32)
[2018-02-08] MEDS: FREE WATER GT SCH ×4 (02:23→20:00)
[2018-02-08 04:36] LABS: Basophils # (auto) 0 uL; Basophils % (auto) 0.1 % (0.0-2.0); Eosinophils # (auto) 0.1 uL; Eosinophils % (auto) 0.6 % (0.0-7.0); Hematocrit 38.1 % (36.0-46.0); Hemoglobin 12.2 g/dL (12.2-16.2); Lymphocytes # (auto) 0.8 uL; Lymphocytes % (auto) 6.5 % (10.0-50.0); Mean Corpuscular Hemoglobin 28.5 pg (28.0-32.0); Mean Corpuscular Hgb Conc. 31.9 g/dL (32.0-36.0); Mean Corpuscular Volume 89.2 fL (80.0-100.0); Monocytes # (auto) 0.7 uL; Monocytes % (auto) 6.1 % (0.0-12.0); Neutrophils # (auto) 10.4 uL; Neutrophils % (auto) 86.7 % (37.0-80.0); Platelet Count (auto) 75 10^3/uL (140-450); Red Blood Cells 4.27 10^6/uL (4.0-5.20); Red Cell Distribution Width 17.2 % (11.8-14.3)
[2018-02-08 04:44] LABS: Albumin 2.6 g/dL (3.4-5.0); BUN/Creatinine Ratio 36.7; Calcium 7.7 mg/dL (8.5-10.1); Magnesium 2.3 mg/dL (1.6-2.6); Phosphorus 2.5 mg/dL (2.5-4.90); Potassium 3.7 mmol/L (3.5-5.1); Total Protein 5.2 g/dL (6.4-8.2)
[2018-02-08] MEDS: METOCLOPRAMIDE HCL 10 MG/10ml ORAL soln GT SCH ×3 (06:17→22:00)
[2018-02-08] MEDS: FUROSEMIDE 100 MG/10ML VIAL IV SCH (06:17)
[2018-02-08] MEDS: ACCU-CHEK COMFORT CURVE STRIP VI SCH ×3 (06:18→17:57)
[2018-02-08] MEDS: InsuLIN REG 1unit/0.01ml Soln (100units/ml) SC SCH ×4 (06:18→18:00)
[2018-02-08] MEDS: NYSTATIN (MOUTH-THROAT) 500,000 UNITS/5 ML SUSP MT SCH ×4 (06:18→22:00)
[2018-02-08] MEDS: VANCOMYCIN 1,500 MG in D5W 5% 250 ML IV SCH ×3 (07:00→20:00)
[2018-02-08] MEDS: fentaNYL Drip 2500mCg/250mlNS 250 ML IV SCH ×2 (07:28→19:40)
[2018-02-08] MEDS: ATRACURIUM BESYLATE 1,000 MG in D5W 5% 150 ML IV SCH ×2 (08:14→20:50)
[2018-02-08] MEDS: FLUCONAZOLE 200MG/100ML 100 ML IV SCH ×2 (09:11→10:01)
[2018-02-08] MEDS: SILDENAFIL CITRATE 20 MG TAB PO SCH ×3 (09:11→20:00)
[2018-02-08] MEDS: LEVOTHYROXINE SODIUM 100 MCG/5 ML INJ IV SCH (09:52)
[2018-02-08] MEDS: LACTULOSE 20Gm/30ML SOLN GT SCH ×2 (09:52→22:00)
[2018-02-08] MEDS: POTASSIUM CHL 10% (20 MEQ/15ML) 15ml ORAL SOLN GT SCH ×2 (09:54→22:00)
[2018-02-08] MEDS: SODIUM CHLOR 0.9% PF (SALINE LOCK) 10ML VIAL/SYR IV SCH ×2 (09:58→22:00)
[2018-02-08] MEDS: PANTOPRAZOLE 40 MG/10 ML VIAL IV SCH ×2 (09:58→22:00)
[2018-02-08] MEDS: predniSONE 20 MG TAB PO SCH (09:59)
[2018-02-08] MEDS: INSULIN LANTUS (GLARGINE) 1 /0.01ml (100units/ml) SC SCH ×2 (10:00→22:00)
[2018-02-08] MEDS: ENOXAPARIN SOD 40 MG/0.4 ML SYRINGE SC SCH (10:00)
[2018-02-08] MEDS: BUDESONIDE (INHALATION) 0.5 MG/2 ML NEB NEB SCH ×2 (10:17→22:01)
[2018-02-08] MEDS: LEVOFLOXACIN 750MG 150 ML IV SCH (11:12)
[2018-02-08] MEDS ORDERED: METOCLOPRAMIDE HCL 5MG/ml INJ 2ml VIAL IV ONE (13:15)
[2018-02-08] MEDS: PROPOFOL 100 ML IV SCH (13:40)
[2018-02-08] MEDS: NOREPINEPHRINE 8 MG/250ML KIT 250 ML IV SCH (13:40)
[2018-02-08] MEDS ORDERED: FUROSEMIDE INJECTION 10 ML ONE (16:12)
[2018-02-08] MEDS ORDERED: FUROSEMIDE 100 MG/10ML VIAL IV ONE (16:15)
[2018-02-08] MEDS: FUROSEMIDE INJECTION 100 MG in D5W 5% 90 ML IV SCH (16:46)
[2018-02-08] MEDS ORDERED: InsuLIN REG 1unit/0.01ml Soln (100units/ml) SC ONE (18:15)
[2018-02-08] MEDS ORDERED: TPN PER PHARMACY IV NR ×11 (20:00)
[2018-02-08] MEDS: DEXTROSE (50%) 50ML SYRG IV SCH (22:00)
[2018-02-09] VITALS (108 sets, daily range): BP systolic 45–142; BP diastolic 34–88
[2018-02-09] MEDS: DEXTROSE (50%) 50ML SYRG IV SCH ×4 (02:00→11:44)
[2018-02-09] MEDS: FREE WATER GT SCH ×3 (02:11→14:00)
[2018-02-09] MEDS: ACETYLCYSTEINE 20%(200MG/ML) SOL 4ML NEB SCH ×6 (02:13→22:42)
[2018-02-09] MEDS: ALBUTEROL SULF 2.5 MG/0.5ML(0.5%) NEB SOLN NEB SCH ×6 (02:13→22:39)
[2018-02-09] MEDS: IPRATROPIUM BROM 0.5 MG/2.5ML INH SOL NEB SCH ×6 (02:13→22:40)
[2018-02-09] MEDS: MIDAZOLAM DRIP 50 mg/50mL 50 ML IV SCH ×5 (02:19→23:39)
[2018-02-09] MEDS: VANCOMYCIN 1,500 MG in D5W 5% 250 ML IV SCH ×2 (04:00→16:23)
[2018-02-09 04:21] LABS: Hemoglobin 12.3 g/dL (12.2-16.2); Mean Corpuscular Hemoglobin 28.5 pg (28.0-32.0); Mean Corpuscular Hgb Conc. 31.5 g/dL (32.0-36.0); Mean Corpuscular Volume 90.4 fL (80.0-100.0); Platelet Count (auto) 81 10^3/uL (140-450); Red Blood Cells 4.32 10^6/uL (4.0-5.20); Red Cell Distribution Width 17.4 % (11.8-14.3); White Blood Cell 13.3 10^3/uL (4.4-10.8)
[2018-02-09 04:40] LABS: Albumin 2.6 g/dL (3.4-5.0); BUN/Creatinine Ratio 33.8; Bilirubin, Total 1.8 mg/dL (0.2-1.0); Calcium 8.1 mg/dL (8.5-10.1); Magnesium 2.4 mg/dL (1.6-2.6); Phosphorus 3.5 mg/dL (2.5-4.90); Potassium 4.5 mmol/L (3.5-5.1); Total Protein 5.8 g/dL (6.4-8.2)
[2018-02-09 05:00] LABS: Basophils % (manual) 0 (0.0-2.0); Blast Cells 0; Metamyelocytes % 0; Myelocytes % 0; Promyelocytes % 0; Reactive Lymphocytes 0
[2018-02-09 05:25] LABS: Band Neutrophils % (manual) 1; Eosinophils % (manual) 2 (0-7); Lymphocytes % (manual) 5 (10.0-50.0); Monocytes % (manual) 2 (0-12)
[2018-02-09] MEDS: METOCLOPRAMIDE HCL 10 MG/10ml ORAL soln GT SCH (06:16)
[2018-02-09] MEDS: NYSTATIN (MOUTH-THROAT) 500,000 UNITS/5 ML SUSP MT SCH ×4 (06:17→23:00)
[2018-02-09] MEDS: ACCU-CHEK COMFORT CURVE STRIP VI SCH ×5 (06:17→22:59)
[2018-02-09] MEDS: InsuLIN REG 1unit/0.01ml Soln (100units/ml) SC SCH ×4 (06:18→22:59)
[2018-02-09] MEDS: BUDESONIDE (INHALATION) 0.5 MG/2 ML NEB NEB SCH ×2 (06:21→22:41)
[2018-02-09] MEDS: FUROSEMIDE INJECTION 100 MG in D5W 5% 90 ML IV SCH ×3 (08:02→23:11)
[2018-02-09] MEDS: fentaNYL Drip 2500mCg/250mlNS 250 ML IV SCH (08:04)
[2018-02-09] MEDS: FLUCONAZOLE 200MG/100ML 100 ML IV SCH ×2 (08:31→09:30)
[2018-02-09] MEDS: SILDENAFIL CITRATE 20 MG TAB PO SCH ×3 (08:31→20:34)
[2018-02-09] MEDS: PANTOPRAZOLE 40 MG/10 ML VIAL IV SCH ×2 (08:31→23:00)
[2018-02-09] MEDS: LEVOTHYROXINE SODIUM 100 MCG/5 ML INJ IV SCH (10:16)
[2018-02-09] MEDS: LEVOFLOXACIN 750MG 150 ML IV SCH ×2 (10:16→10:30)
[2018-02-09] MEDS: LACTULOSE 20Gm/30ML SOLN GT SCH ×2 (10:16→23:00)
[2018-02-09] MEDS: SODIUM CHLOR 0.9% PF (SALINE LOCK) 10ML VIAL/SYR IV SCH ×2 (10:18→23:00)
[2018-02-09] MEDS: INSULIN LANTUS (GLARGINE) 1 /0.01ml (100units/ml) SC SCH ×2 (10:26→22:59)
[2018-02-09] MEDS ORDERED: cloNIDine HCL 0.1 MG TAB PO PRN (10:45)
[2018-02-09] MEDS ORDERED: ACETAMINOPHEN 325 MG TAB PO PRN (10:45)
[2018-02-09] MEDS ORDERED: ONDANSETRON HCL 4 MG/2 ML VIAL IV PRN (10:45)
[2018-02-09] MEDS: PROPOFOL 100 ML IV SCH (11:43)
[2018-02-09] MEDS: NOREPINEPHRINE 8 MG/250ML KIT 250 ML IV SCH (11:44)
[2018-02-09] MEDS ORDERED: POTASSIUM CHL 10% (20 MEQ/15ML) 15ml ORAL SOLN GT ONE (11:45)
[2018-02-09] MEDS: METOCLOPRAMIDE HCL 5MG/ml INJ 2ml VIAL IV SCH ×2 (14:47→23:00)
[2018-02-09] MEDS ORDERED: FUROSEMIDE INJECTION 100 MG in D5W 5% 90 ML IV SCH (15:45)
[2018-02-09] MEDS ORDERED: FUROSEMIDE 40 MG/4 ML VIAL IV SCH (18:00)
[2018-02-09] MEDS ORDERED: SODIUM CHLORIDE IV NR ×11 (20:00)
[2018-02-09] MEDS ORDERED: [UNRECOGNIZED DRUG - OTHER] IV NR ×11 (20:00)
[2018-02-09] MEDS ORDERED: SODIUM PHOSPHATES IV NR ×11 (20:00)
[2018-02-09] MEDS ORDERED: FAT EMULSION IV NR ×11 (20:00)
[2018-02-09] MEDS: ATRACURIUM BESYLATE 1,000 MG in D5W 5% 150 ML IV SCH (20:04)
[2018-02-09] MEDS ORDERED: POTASSIUM CHL 10% (20 MEQ/15ML) 15ml ORAL SOLN GT SCH (22:00)
[2018-02-10] VITALS (65 sets, daily range): BP systolic 56–118; BP diastolic 35–82
[2018-02-10] MEDS: VANCOMYCIN 1GM/250ML 250 ML IV SCH ×3 (00:29→17:43)
[2018-02-10] MEDS: ACETYLCYSTEINE 20%(200MG/ML) SOL 4ML NEB SCH ×6 (02:33→22:03)
[2018-02-10] MEDS: IPRATROPIUM BROM 0.5 MG/2.5ML INH SOL NEB SCH ×6 (02:33→22:02)
[2018-02-10] MEDS: ALBUTEROL SULF 2.5 MG/0.5ML(0.5%) NEB SOLN NEB SCH ×6 (02:33→22:02)
[2018-02-10] MEDS: InsuLIN REG 1unit/0.01ml Soln (100units/ml) SC SCH ×6 (02:38→23:14)
[2018-02-10] MEDS: ACCU-CHEK COMFORT CURVE STRIP VI SCH ×6 (02:38→23:00)
[2018-02-10 03:50] LABS: Hemoglobin 12.5 g/dL (12.2-16.2); Mean Corpuscular Hemoglobin 28.1 pg (28.0-32.0); Mean Corpuscular Hgb Conc. 32.1 g/dL (32.0-36.0); Mean Corpuscular Volume 87.4 fL (80.0-100.0); Platelet Count (auto) 96 10^3/uL (140-450); Red Blood Cells 4.46 10^6/uL (4.0-5.20); Red Cell Distribution Width 17.2 % (11.8-14.3)
[2018-02-10] MEDS: MIDAZOLAM DRIP 50 mg/50mL 50 ML IV SCH ×4 (04:03→16:30)
[2018-02-10 04:09] LABS: Basophils % (manual) 0 (0.0-2.0); Blast Cells 0; Myelocytes % 0; Promyelocytes % 0; Reactive Lymphocytes 0
[2018-02-10 04:14] LABS: Albumin 2.3 g/dL (3.4-5.0); BUN/Creatinine Ratio 33.3; Bilirubin, Total 1.9 mg/dL (0.2-1.0); Calcium 7.6 mg/dL (8.5-10.1); Magnesium 1.8 mg/dL (1.6-2.6); Phosphorus 2.2 mg/dL (2.5-4.90); Potassium 3.1 mmol/L (3.5-5.1); Total Protein 5.6 g/dL (6.4-8.2)
[2018-02-10 04:17] LABS: Pre Albumin 20.5 mg/dL (20.0-40.0)
[2018-02-10 04:31] LABS: Band Neutrophils % (manual) 5; Eosinophils % (manual) 1 (0-7); Lymphocytes % (manual) 7 (10.0-50.0); Metamyelocytes % 2; Monocytes % (manual) 4 (0-12)
[2018-02-10] MEDS: METOCLOPRAMIDE HCL 5MG/ml INJ 2ml VIAL IV SCH ×3 (06:23→23:00)
[2018-02-10] MEDS: NYSTATIN (MOUTH-THROAT) 500,000 UNITS/5 ML SUSP MT SCH ×4 (06:23→23:00)
[2018-02-10] MEDS: fentaNYL Drip 2500mCg/250mlNS 250 ML IV SCH ×2 (07:00→17:37)
[2018-02-10] MEDS: ATRACURIUM BESYLATE 1,000 MG in D5W 5% 150 ML IV SCH ×2 (07:21→17:38)
[2018-02-10] MEDS ORDERED: SODIUM PHOSPHATES 20 MEQ in SODIUM CHL 0.9% 100 ML IV ONE (07:30)
[2018-02-10] MEDS: SILDENAFIL CITRATE 20 MG TAB PO SCH ×4 (07:45→20:00)
[2018-02-10] MEDS: POTASSIUM CHL 20MEQ/100ML 100 ML IV SCH ×3 (08:49→13:15)
[2018-02-10] MEDS: FUROSEMIDE INJECTION 100 MG in D5W 5% 90 ML IV SCH (09:18)
[2018-02-10] MEDS: FLUCONAZOLE 200MG/100ML 100 ML IV SCH (09:50)
[2018-02-10] MEDS: BUDESONIDE (INHALATION) 0.5 MG/2 ML NEB NEB SCH ×2 (10:17→22:08)
[2018-02-10] MEDS: LACTULOSE 20Gm/30ML SOLN GT SCH ×2 (11:20→22:00)
[2018-02-10] MEDS: SODIUM CHLOR 0.9% PF (SALINE LOCK) 10ML VIAL/SYR IV SCH ×2 (11:21→23:00)
[2018-02-10] MEDS: LEVOTHYROXINE SODIUM 100 MCG/5 ML INJ IV SCH (11:21)
[2018-02-10] MEDS: PANTOPRAZOLE 40 MG/10 ML VIAL IV SCH ×2 (11:21→23:00)
[2018-02-10] MEDS: INSULIN LANTUS (GLARGINE) 1 /0.01ml (100units/ml) SC SCH ×2 (11:52→23:00)
[2018-02-10] MEDS: POTASSIUM CHL 10% (20 MEQ/15ML) 15ml ORAL SOLN GT SCH ×2 (11:54→22:00)
[2018-02-10] MEDS: NOREPINEPHRINE 8 MG/250ML KIT 250 ML IV SCH (12:04)
[2018-02-10] MEDS: PROPOFOL 100 ML IV SCH (12:04)
[2018-02-10] MEDS: MEROPENEM 1gm/20ml IVPUSH 20 ML IV SCH ×2 (12:38→20:00)
[2018-02-10] MEDS ORDERED: BUMETANIDE (0.25MG/ML) 4 ML VIAL IV ONE (13:00)
[2018-02-10] MEDS ORDERED: BUMETANIDE INJECTION 25 MG in GIVE UN-DILUTED 0 ML IV SCH (13:00)
[2018-02-10] MEDS ORDERED: FONDAPARINUX SC SCH (15:50)
[2018-02-10] MEDS: MICAFUNGIN SODIUM 100 MG in SODIUM CHL 0.9% 100 ML IV SCH (15:54)
[2018-02-10] MEDS: FONDAPARINUX SC SCH (16:22)
[2018-02-10] MEDS ORDERED: TPN PER PHARMACY IV NR ×11 (20:00)
[2018-02-11] VITALS (101 sets, daily range): BP systolic 58–116; BP diastolic 30–83
[2018-02-11] MEDS: InsuLIN REG 1unit/0.01ml Soln (100units/ml) SC SCH ×6 (02:00→22:06)
[2018-02-11] MEDS: ACCU-CHEK COMFORT CURVE STRIP VI SCH ×6 (02:00→22:06)
[2018-02-11] MEDS: ACETYLCYSTEINE 20%(200MG/ML) SOL 4ML NEB SCH ×6 (02:05→22:39)
[2018-02-11] MEDS: IPRATROPIUM BROM 0.5 MG/2.5ML INH SOL NEB SCH ×6 (02:05→22:40)
[2018-02-11] MEDS: ALBUTEROL SULF 2.5 MG/0.5ML(0.5%) NEB SOLN NEB SCH ×6 (02:05→22:40)
[2018-02-11] MEDS: MEROPENEM 1gm/20ml IVPUSH 20 ML IV SCH ×3 (04:00→20:46)
[2018-02-11 04:22] LABS: Hematocrit 38.1 % (36.0-46.0); Hemoglobin 12.3 g/dL (12.2-16.2); Mean Corpuscular Hemoglobin 28.4 pg (28.0-32.0); Mean Corpuscular Hgb Conc. 32.4 g/dL (32.0-36.0); Mean Corpuscular Volume 87.6 fL (80.0-100.0); Platelet Count (auto) 90 10^3/uL (140-450); Red Blood Cells 4.34 10^6/uL (4.0-5.20); Red Cell Distribution Width 17.5 % (11.8-14.3); White Blood Cell 23.6 10^3/uL (4.4-10.8)
[2018-02-11 04:26] LABS: Basophils % (manual) 0 (0.0-2.0); Blast Cells 0; Eosinophils % (manual) 0 (0-7); Myelocytes % 0; Promyelocytes % 0; Reactive Lymphocytes 0
[2018-02-11 04:43] LABS: Albumin 2.2 g/dL (3.4-5.0); Bilirubin, Total 1.7 mg/dL (0.2-1.0); Calcium 7.9 mg/dL (8.5-10.1); Magnesium 1.7 mg/dL (1.6-2.6); Phosphorus 4.3 mg/dL (2.5-4.90); Potassium 3.5 mmol/L (3.5-5.1); Total Protein 5.7 g/dL (6.4-8.2)
[2018-02-11 04:55] LABS: Band Neutrophils % (manual) 10; Lymphocytes % (manual) 7 (10.0-50.0); Metamyelocytes % 2; Monocytes % (manual) 1 (0-12)
[2018-02-11] MEDS: METOCLOPRAMIDE HCL 5MG/ml INJ 2ml VIAL IV SCH ×3 (06:00→22:05)
[2018-02-11] MEDS: NYSTATIN (MOUTH-THROAT) 500,000 UNITS/5 ML SUSP MT SCH ×4 (06:00→22:05)
[2018-02-11] MEDS ORDERED: FUROSEMIDE INJECTION 250 MG in D5W 5% 225 ML IV SCH (07:00)
[2018-02-11] MEDS: SODIUM CHLOR 0.9% PF (SALINE LOCK) 10ML VIAL/SYR IV SCH ×2 (09:49→22:06)
[2018-02-11] MEDS: PANTOPRAZOLE 40 MG/10 ML VIAL IV SCH ×2 (09:49→22:05)
[2018-02-11] MEDS: LACTULOSE 20Gm/30ML SOLN GT SCH ×2 (09:49→22:05)
[2018-02-11] MEDS: POTASSIUM CHL 10% (20 MEQ/15ML) 15ml ORAL SOLN GT SCH ×2 (09:49→22:06)
[2018-02-11] MEDS: LEVOTHYROXINE SODIUM 100 MCG/5 ML INJ IV SCH (09:50)
[2018-02-11] MEDS: INSULIN LANTUS (GLARGINE) 1 /0.01ml (100units/ml) SC SCH ×2 (09:50→22:06)
[2018-02-11] MEDS: MICAFUNGIN SODIUM 100 MG in SODIUM CHL 0.9% 100 ML IV SCH (09:50)
[2018-02-11] MEDS: FONDAPARINUX SC SCH (09:50)
[2018-02-11] MEDS: BUDESONIDE (INHALATION) 0.5 MG/2 ML NEB NEB SCH ×2 (10:00→18:33)
[2018-02-11] MEDS: VANCOMYCIN 1GM/250ML 250 ML IV SCH ×2 (11:57)
[2018-02-11] MEDS: PROPOFOL 100 ML IV SCH (13:24)
[2018-02-11] MEDS: NOREPINEPHRINE 8 MG/250ML KIT 250 ML IV SCH (13:25)
[2018-02-11] MEDS: SILDENAFIL CITRATE 20 MG TAB PO SCH ×2 (13:39→20:46)
[2018-02-11] MEDS ORDERED: TPN PER PHARMACY IV NR ×11 (20:00)
[2018-02-11] MEDS: ATRACURIUM BESYLATE 1,000 MG in D5W 5% 150 ML IV SCH (21:10)
[2018-02-11] MEDS: MIDAZOLAM DRIP 50 mg/50mL 50 ML IV SCH (22:15)
[2018-02-11] MEDS ORDERED: TEMAZEPAM 15 MG CAP PO PRN (22:45)
[2018-02-11] MEDS ORDERED: LORazepam 2MG/ML-1ML VIAL IV PRN (22:45)
[2018-02-11] MEDS ORDERED: HYDROcodone-ACET 5/325MG TAB PO PRN (22:45)
[2018-02-11] MEDS ORDERED: MORPHINE SULFATE 4 MG/ML SYR/VIAL IV PRN (22:45)
[2018-02-12] VITALS (107 sets, daily range): BP systolic 67–119; BP diastolic 35–67
[2018-02-12] MEDS: VANCOMYCIN 1GM/250ML 250 ML IV SCH ×2 (01:30→11:54)
[2018-02-12] MEDS: MIDAZOLAM DRIP 50 mg/50mL 50 ML IV SCH ×7 (02:17→19:45)
[2018-02-12] MEDS: InsuLIN REG 1unit/0.01ml Soln (100units/ml) SC SCH ×6 (02:19→22:09)
[2018-02-12] MEDS: ACCU-CHEK COMFORT CURVE STRIP VI SCH ×6 (02:19→22:06)
[2018-02-12] MEDS: ACETYLCYSTEINE 20%(200MG/ML) SOL 4ML NEB SCH ×6 (02:47→22:24)
[2018-02-12] MEDS: IPRATROPIUM BROM 0.5 MG/2.5ML INH SOL NEB SCH ×6 (02:48→21:56)
[2018-02-12] MEDS: ALBUTEROL SULF 2.5 MG/0.5ML(0.5%) NEB SOLN NEB SCH ×6 (02:48→21:56)
[2018-02-12 03:27] LABS: Hematocrit 32.7 % (36.0-46.0); Hemoglobin 10.4 g/dL (12.2-16.2); Mean Corpuscular Hemoglobin 28.2 pg (28.0-32.0); Mean Corpuscular Hgb Conc. 31.9 g/dL (32.0-36.0); Mean Corpuscular Volume 88.4 fL (80.0-100.0); Platelet Count (auto) 75 10^3/uL (140-450); Red Cell Distribution Width 17.7 % (11.8-14.3); White Blood Cell 20.1 10^3/uL (4.4-10.8)
[2018-02-12 03:42] LABS: Basophils % (manual) 0 (0.0-2.0); Blast Cells 0; Promyelocytes % 0; Reactive Lymphocytes 0
[2018-02-12 03:52] LABS: Albumin 1.9 g/dL (3.4-5.0); BUN/Creatinine Ratio 41.5; Bilirubin, Total 1.7 mg/dL (0.2-1.0); Calcium 8.1 mg/dL (8.5-10.1); Magnesium 2.2 mg/dL (1.6-2.6); Potassium 4.2 mmol/L (3.5-5.1); Total Protein 5.6 g/dL (6.4-8.2)
[2018-02-12 04:02] LABS: Band Neutrophils % (manual) 8; Eosinophils % (manual) 1 (0-7); Lymphocytes % (manual) 5 (10.0-50.0); Metamyelocytes % 2; Monocytes % (manual) 4 (0-12); Myelocytes % 1
[2018-02-12] MEDS ORDERED: fentaNYL Drip 2500mCg/250mlNS 250 ML IV ONE (04:15)
[2018-02-12] MEDS: fentaNYL Drip 2500mCg/250mlNS 250 ML IV SCH ×2 (04:15→15:41)
[2018-02-12] MEDS: MEROPENEM 1gm/20ml IVPUSH 20 ML IV SCH ×2 (04:25→11:54)
[2018-02-12] MEDS: METOCLOPRAMIDE HCL 5MG/ml INJ 2ml VIAL IV SCH ×3 (05:47→22:06)
[2018-02-12] MEDS: NYSTATIN (MOUTH-THROAT) 500,000 UNITS/5 ML SUSP MT SCH ×4 (05:47→22:06)
[2018-02-12] MEDS: ATRACURIUM BESYLATE 1,000 MG in D5W 5% 150 ML IV SCH ×2 (06:47→17:39)
[2018-02-12] MEDS: SILDENAFIL CITRATE 20 MG TAB PO SCH ×3 (08:32→20:13)
[2018-02-12] MEDS: PANTOPRAZOLE 40 MG/10 ML VIAL IV SCH ×2 (10:00→22:05)
[2018-02-12] MEDS: LACTULOSE 20Gm/30ML SOLN GT SCH ×2 (10:00→22:06)
[2018-02-12] MEDS: FONDAPARINUX SC SCH (10:00)
[2018-02-12] MEDS: LEVOTHYROXINE SODIUM 100 MCG/5 ML INJ IV SCH (10:00)
[2018-02-12] MEDS: SODIUM CHLOR 0.9% PF (SALINE LOCK) 10ML VIAL/SYR IV SCH ×2 (10:00→22:06)
[2018-02-12] MEDS: POTASSIUM CHL 10% (20 MEQ/15ML) 15ml ORAL SOLN GT SCH ×2 (10:00→22:06)
[2018-02-12] MEDS: MICAFUNGIN SODIUM 100 MG in SODIUM CHL 0.9% 100 ML IV SCH (10:00)
[2018-02-12] MEDS: BUDESONIDE (INHALATION) 0.5 MG/2 ML NEB NEB SCH ×2 (10:09→22:24)
[2018-02-12] MEDS: BUMETANIDE INJECTION 25 MG in GIVE UN-DILUTED 0 ML IV SCH (11:00)
[2018-02-12] MEDS: INSULIN LANTUS (GLARGINE) 1 /0.01ml (100units/ml) SC SCH ×2 (11:30→22:09)
[2018-02-12] MEDS: ALBUMIN 25% 100 ML IV SCH ×2 (11:53→18:04)
[2018-02-12] MEDS ORDERED: BISACODYL 10 MG RECT SUPP PR ONE ×2 (12:15→14:23)
[2018-02-12] MEDS ORDERED: BISACODYL 10 MG RECT SUPP PR PRN (12:15)
[2018-02-12] MEDS ORDERED: MIDAZOLAM DRIP 50 mg/50mL 50 ML IV SCH (12:41)
[2018-02-12] MEDS: NOREPINEPHRINE 8 MG/250ML KIT 250 ML IV SCH (13:40)
[2018-02-12] MEDS: PROPOFOL 100 ML IV SCH (13:40)
[2018-02-12] MEDS ORDERED: TPN PER PHARMACY IV NR ×11 (20:00)
[2018-02-13] VITALS (106 sets, daily range): BP systolic 78–159; BP diastolic 32–86
[2018-02-13] MEDS: MIDAZOLAM DRIP 50 mg/50mL 50 ML IV SCH ×2 (00:23→19:40)
[2018-02-13] MEDS: InsuLIN REG 1unit/0.01ml Soln (100units/ml) SC SCH ×6 (02:00→22:05)
[2018-02-13] MEDS: ACCU-CHEK COMFORT CURVE STRIP VI SCH ×6 (02:00→22:02)
[2018-02-13] MEDS: IPRATROPIUM BROM 0.5 MG/2.5ML INH SOL NEB SCH ×6 (02:41→22:20)
[2018-02-13] MEDS: ALBUTEROL SULF 2.5 MG/0.5ML(0.5%) NEB SOLN NEB SCH ×4 (02:41→14:30)
[2018-02-13] MEDS: ACETYLCYSTEINE 20%(200MG/ML) SOL 4ML NEB SCH ×6 (02:41→22:21)
[2018-02-13] MEDS: ATRACURIUM BESYLATE 1,000 MG in D5W 5% 150 ML IV SCH (03:00)
[2018-02-13] MEDS: fentaNYL Drip 2500mCg/250mlNS 250 ML IV SCH (03:30)
[2018-02-13] MEDS: ALBUMIN 25% 100 ML IV SCH (03:42)
[2018-02-13 04:14] LABS: Hematocrit 33.6 % (36.0-46.0); Hemoglobin 10.7 g/dL (12.2-16.2); Mean Corpuscular Hemoglobin 27.9 pg (28.0-32.0); Mean Corpuscular Hgb Conc. 31.7 g/dL (32.0-36.0); Platelet Count (auto) 79 10^3/uL (140-450); Red Blood Cells 3.81 10^6/uL (4.0-5.20); Red Cell Distribution Width 17.9 % (11.8-14.3); White Blood Cell 16.9 10^3/uL (4.4-10.8)
[2018-02-13 04:19] LABS: Albumin 2.6 g/dL (3.4-5.0); Bilirubin, Total 2.2 mg/dL (0.2-1.0); Calcium 8.3 mg/dL (8.5-10.1); Magnesium 2.4 mg/dL (1.6-2.6); Phosphorus 3.6 mg/dL (2.5-4.90); Potassium 3.5 mmol/L (3.5-5.1); Total Protein 5.9 g/dL (6.4-8.2)
[2018-02-13 04:27] LABS: Basophils % (manual) 0 (0.0-2.0); Blast Cells 0; Metamyelocytes % 0; Promyelocytes % 0
[2018-02-13 05:01] LABS: Band Neutrophils % (manual) 8; Eosinophils % (manual) 1 (0-7); Lymphocytes % (manual) 7 (10.0-50.0); Monocytes % (manual) 4 (0-12); Myelocytes % 1; Reactive Lymphocytes 1
[2018-02-13] MEDS: NOREPINEPHRINE 8 MG/250ML KIT 250 ML IV SCH (05:25)
[2018-02-13] MEDS: METOCLOPRAMIDE HCL 5MG/ml INJ 2ml VIAL IV SCH ×3 (06:00→21:37)
[2018-02-13] MEDS: NYSTATIN (MOUTH-THROAT) 500,000 UNITS/5 ML SUSP MT SCH ×4 (06:00→21:38)
[2018-02-13] MEDS: BUDESONIDE (INHALATION) 0.5 MG/2 ML NEB NEB SCH ×2 (06:14→22:21)
[2018-02-13] MEDS: SILDENAFIL CITRATE 20 MG TAB PO SCH ×3 (08:23→19:40)
[2018-02-13] MEDS: BUMETANIDE INJECTION 25 MG in GIVE UN-DILUTED 0 ML IV SCH ×2 (09:00→17:41)
[2018-02-13] MEDS: FONDAPARINUX SC SCH (10:00)
[2018-02-13] MEDS: SODIUM CHLOR 0.9% PF (SALINE LOCK) 10ML VIAL/SYR IV SCH ×2 (10:00→21:38)
[2018-02-13] MEDS: POTASSIUM CHL 10% (20 MEQ/15ML) 15ml ORAL SOLN GT SCH ×2 (10:00→21:38)
[2018-02-13] MEDS: LACTULOSE 20Gm/30ML SOLN GT SCH ×2 (10:52→21:37)
[2018-02-13] MEDS: LEVOTHYROXINE SODIUM 100 MCG/5 ML INJ IV SCH (10:54)
[2018-02-13] MEDS: PANTOPRAZOLE 40 MG/10 ML VIAL IV SCH ×2 (10:54→21:37)
[2018-02-13] MEDS: OPSUMIT 10 MG NG SCH (11:12)
[2018-02-13] MEDS: INSULIN LANTUS (GLARGINE) 1 /0.01ml (100units/ml) SC SCH ×2 (11:12→22:02)
[2018-02-13] MEDS: PROPOFOL 100 ML IV SCH (13:40)
[2018-02-13] MEDS: LEVALBUTEROL HCL 1.25 MG/3 ML NEB NEB SCH ×3 (15:30→22:21)
[2018-02-13] MEDS ORDERED: TPN PER PHARMACY IV NR ×11 (20:00)
[2018-02-13] MEDS: ACETAMINOPHEN 650 mg PER 20 mL UD GT PRN (23:27)
[2018-02-14] VITALS (108 sets, daily range): BP systolic 73–137; BP diastolic 36–82
[2018-02-14] MEDS: ACETYLCYSTEINE 20%(200MG/ML) SOL 4ML NEB SCH ×6 (01:47→22:05)
[2018-02-14] MEDS: IPRATROPIUM BROM 0.5 MG/2.5ML INH SOL NEB SCH ×6 (01:47→22:06)
[2018-02-14] MEDS: MIDAZOLAM DRIP 50 mg/50mL 50 ML IV SCH ×2 (01:48→17:25)
[2018-02-14] MEDS: ACCU-CHEK COMFORT CURVE STRIP VI SCH ×6 (01:53→21:28)
[2018-02-14] MEDS: InsuLIN REG 1unit/0.01ml Soln (100units/ml) SC SCH ×6 (01:53→21:28)
[2018-02-14 03:33] LABS: Hematocrit 34.9 % (36.0-46.0); Hemoglobin 11.2 g/dL (12.2-16.2); Mean Corpuscular Hemoglobin 28.1 pg (28.0-32.0); Mean Corpuscular Hgb Conc. 32.1 g/dL (32.0-36.0); Mean Corpuscular Volume 87.6 fL (80.0-100.0); Platelet Count (auto) 114 10^3/uL (140-450); Red Blood Cells 3.99 10^6/uL (4.0-5.20); Red Cell Distribution Width 18.4 % (11.8-14.3); White Blood Cell 19.9 10^3/uL (4.4-10.8)
[2018-02-14 03:36] LABS: Basophils % (manual) 0 (0.0-2.0); Blast Cells 0; Eosinophils % (manual) 0 (0-7); Myelocytes % 0; Promyelocytes % 0; Reactive Lymphocytes 0
[2018-02-14] MEDS: fentaNYL Drip 2500mCg/250mlNS 250 ML IV SCH ×2 (03:42→14:06)
[2018-02-14 03:53] LABS: Albumin 2.6 g/dL (3.4-5.0); BUN/Creatinine Ratio 51.5; Calcium 8.5 mg/dL (8.5-10.1); Magnesium 2.3 mg/dL (1.6-2.6); Potassium 3.2 mmol/L (3.5-5.1); Total Protein 6.2 g/dL (6.4-8.2)
[2018-02-14 04:11] LABS: Band Neutrophils % (manual) 5; Lymphocytes % (manual) 9 (10.0-50.0); Metamyelocytes % 3; Monocytes % (manual) 3 (0-12)
[2018-02-14] MEDS ORDERED: POTASSIUM CHL 20MEQ/100ML 100 ML IV ONE ×3 (04:15→09:45)
[2018-02-14] MEDS: BUMETANIDE INJECTION 25 MG in GIVE UN-DILUTED 0 ML IV SCH ×2 (05:05→14:00)
[2018-02-14] MEDS: NYSTATIN (MOUTH-THROAT) 500,000 UNITS/5 ML SUSP MT SCH ×4 (05:12→21:25)
[2018-02-14] MEDS: METOCLOPRAMIDE HCL 5MG/ml INJ 2ml VIAL IV SCH ×3 (05:12→21:27)
[2018-02-14] MEDS: LEVALBUTEROL HCL 1.25 MG/3 ML NEB NEB SCH ×4 (07:29→22:06)
[2018-02-14] MEDS: BUDESONIDE (INHALATION) 0.5 MG/2 ML NEB NEB SCH ×2 (07:37→22:06)
[2018-02-14] MEDS: SILDENAFIL CITRATE 20 MG TAB PO SCH ×3 (08:30→19:29)
[2018-02-14] MEDS: LEVOTHYROXINE SODIUM 100 MCG/5 ML INJ IV SCH (10:08)
[2018-02-14] MEDS: PANTOPRAZOLE 40 MG/10 ML VIAL IV SCH ×2 (10:08→21:27)
[2018-02-14] MEDS: OPSUMIT 10 MG NG SCH (10:09)
[2018-02-14] MEDS: POTASSIUM CHL 10% (20 MEQ/15ML) 15ml ORAL SOLN GT SCH ×2 (10:09→21:27)
[2018-02-14] MEDS: FONDAPARINUX SOD 2.5mg/0.5ml SYRINGE SC SCH (10:09)
[2018-02-14] MEDS: SODIUM CHLOR 0.9% PF (SALINE LOCK) 10ML VIAL/SYR IV SCH ×2 (10:09→21:27)
[2018-02-14] MEDS: LACTULOSE 20Gm/30ML SOLN GT SCH ×2 (10:17→21:27)
[2018-02-14] MEDS: INSULIN LANTUS (GLARGINE) 1 /0.01ml (100units/ml) SC SCH ×2 (10:18→21:28)
[2018-02-14] MEDS: PROPOFOL 100 ML IV SCH (11:57)
[2018-02-14] MEDS: NOREPINEPHRINE 8 MG/250ML KIT 250 ML IV SCH (12:00)
[2018-02-14 15:47] LABS: Urine Bacteria FEW /hpf (None Seen); Urine Blood 2+ /uL (Negative); Urine Mucus FEW (None Seen); Urine Specific Gravity 1.008 (1.001-1.035); Urine WBC 9 /hpf (0 - 5)
[2018-02-14] MEDS ORDERED: MACI1TAB2 PO (17:27)
[2018-02-14] MEDS: ATRACURIUM BESYLATE 1,000 MG in D5W 5% 150 ML IV SCH (19:26)
[2018-02-14] MEDS: ACETAMINOPHEN 650 mg PER 20 mL UD GT PRN (19:41)
[2018-02-14] MEDS ORDERED: TPN PER PHARMACY IV NR ×12 (20:00)
[2018-02-15] VITALS (103 sets, daily range): BP systolic 64–149; BP diastolic 33–144
[2018-02-15] MEDS: InsuLIN REG 1unit/0.01ml Soln (100units/ml) SC SCH ×6 (01:25→21:50)
[2018-02-15] MEDS: ACETYLCYSTEINE 20%(200MG/ML) SOL 4ML NEB SCH ×6 (02:00→22:41)
[2018-02-15] MEDS: ACCU-CHEK COMFORT CURVE STRIP VI SCH ×6 (02:00→21:52)
[2018-02-15] MEDS: LEVALBUTEROL HCL 1.25 MG/3 ML NEB NEB SCH ×4 (02:00→18:16)
[2018-02-15] MEDS: IPRATROPIUM BROM 0.5 MG/2.5ML INH SOL NEB SCH ×6 (02:00→22:41)
[2018-02-15 04:07] LABS: Hematocrit 36.7 % (36.0-46.0); Hemoglobin 11.8 g/dL (12.2-16.2); Mean Corpuscular Hemoglobin 28.4 pg (28.0-32.0); Mean Corpuscular Hgb Conc. 32.3 g/dL (32.0-36.0); Mean Corpuscular Volume 87.8 fL (80.0-100.0); Platelet Count (auto) 126 10^3/uL (140-450); Red Blood Cells 4.17 10^6/uL (4.0-5.20); Red Cell Distribution Width 18.3 % (11.8-14.3)
[2018-02-15 04:09] LABS: Basophils % (manual) 0 (0.0-2.0); Blast Cells 0; Eosinophils % (manual) 0 (0-7); Metamyelocytes % 0; Myelocytes % 0; Promyelocytes % 0
[2018-02-15 04:51] LABS: Albumin 2.5 g/dL (3.4-5.0); Bilirubin, Total 3.1 mg/dL (0.2-1.0); Calcium 8.7 mg/dL (8.5-10.1); Magnesium 2.1 mg/dL (1.6-2.6); Phosphorus 3.9 mg/dL (2.5-4.90); Potassium 3.3 mmol/L (3.5-5.1); Pre Albumin 14.8 mg/dL (20.0-40.0); Total Protein 6.6 g/dL (6.4-8.2)
[2018-02-15 04:52] LABS: Band Neutrophils % (manual) 5; Lymphocytes % (manual) 11 (10.0-50.0); Monocytes % (manual) 2 (0-12); Reactive Lymphocytes 1
[2018-02-15] MEDS: METOCLOPRAMIDE HCL 5MG/ml INJ 2ml VIAL IV SCH ×3 (05:11→21:51)
[2018-02-15] MEDS: BUMETANIDE INJECTION 25 MG in GIVE UN-DILUTED 0 ML IV SCH ×3 (05:11→20:53)
[2018-02-15] MEDS: NYSTATIN (MOUTH-THROAT) 500,000 UNITS/5 ML SUSP MT SCH ×4 (05:11→21:51)
[2018-02-15] MEDS: NOREPINEPHRINE 8 MG/250ML KIT 250 ML IV SCH (05:12)
[2018-02-15] MEDS: MIDAZOLAM DRIP 50 mg/50mL 50 ML IV SCH ×3 (05:13→21:43)
[2018-02-15] MEDS: ATRACURIUM BESYLATE 1,000 MG in D5W 5% 150 ML IV SCH (05:13)
[2018-02-15] MEDS ORDERED: POTASSIUM CHL 20 MEQ/100 ML IV ONE (05:32)
[2018-02-15] MEDS ORDERED: POTASSIUM CHL 20MEQ/100ML 100 ML IV ONE (05:45)
[2018-02-15] MEDS ORDERED: cefTRIAXone 1GM/10ml IVPUSH 10 ML IV ONE (08:45)
[2018-02-15] MEDS ORDERED: POTASSIUM CHL 10% (20 MEQ/15ML) 15ml ORAL SOLN GT ONE (08:45)
[2018-02-15] MEDS: SILDENAFIL CITRATE 20 MG TAB PO SCH ×3 (08:54→21:52)
[2018-02-15] MEDS: cefTRIAXone 1GM/10ml IVPUSH 10 ML IV SCH (09:00)
[2018-02-15] MEDS: PANTOPRAZOLE 40 MG/10 ML VIAL IV SCH ×2 (09:58→21:51)
[2018-02-15] MEDS: BUDESONIDE (INHALATION) 0.5 MG/2 ML NEB NEB SCH ×2 (09:59→18:16)
[2018-02-15] MEDS: OPSUMIT 10 MG NG SCH (09:59)
[2018-02-15] MEDS: LEVOTHYROXINE SODIUM 100 MCG/5 ML INJ IV SCH (09:59)
[2018-02-15] MEDS: POTASSIUM CHL 10% (20 MEQ/15ML) 15ml ORAL SOLN GT SCH ×2 (09:59→21:52)
[2018-02-15] MEDS: FONDAPARINUX SOD 2.5mg/0.5ml SYRINGE SC SCH (10:00)
[2018-02-15] MEDS: LACTULOSE 20Gm/30ML SOLN GT SCH ×2 (10:07→21:51)
[2018-02-15] MEDS: SODIUM CHLOR 0.9% PF (SALINE LOCK) 10ML VIAL/SYR IV SCH ×2 (10:07→21:52)
[2018-02-15] MEDS: INSULIN LANTUS (GLARGINE) 1 /0.01ml (100units/ml) SC SCH ×2 (10:08→21:50)
[2018-02-15] MEDS: PROPOFOL 100 ML IV SCH (10:58)
[2018-02-15] MEDS: fentaNYL Drip 2500mCg/250mlNS 250 ML IV SCH (12:25)
[2018-02-15] MEDS ORDERED: BUMETANIDE INJECTION 25 MG in GIVE UN-DILUTED 0 ML IV SCH (15:15)
[2018-02-15] MEDS ORDERED: ALBUMIN 5% 500 ML IV ONE (15:33)
[2018-02-15] MEDS: ALBUMIN 5% 500 ML IV SCH ×2 (15:35→19:30)
[2018-02-15] MEDS ORDERED: SODIUM CHLORIDE 0.9% 500 ML IV ONE (17:15)
[2018-02-15] MEDS ORDERED: TPN PER PHARMACY IV NR ×11 (20:00)
[2018-02-15] MEDS ORDERED: DOBUTamine 1000MCG/ML 250 ML IV ONE (21:00)
[2018-02-15] MEDS ORDERED: DOBUTamine 1000MCG/ML 250 ML IV SCH (21:00)
[2018-02-15] MEDS ORDERED: NOREPINEPHRINE BITARTRATE 16 MG in D5W 5% 250 ML IV SCH (21:17)
[2018-02-15] MEDS ORDERED: DOBUTAMINE IV SCH (21:30)
[2018-02-15] MEDS ORDERED: D5W 5% IV SCH (22:00)
[2018-02-15] MEDS ORDERED: NOREPINEPHRINE BITARTRATE IV SCH (22:00)
[2018-02-15] MEDS: NOREPINEPHRINE BITARTRATE 32 MG in D5W 5% 218 ML IV SCH (22:00)
[2018-02-15] MEDS: DOBUTamine 1000MCG/ML 250 ML IV SCH (23:00)
[2018-02-15] MEDS: VASOPRESSIN 50 UNITS in D5W 5% 247.5 ML IV SCH (23:30)
[2018-02-15] MEDS ORDERED: VASOPRESSIN 20 UNIT/ML ONE (23:31)
[2018-02-16] VITALS (109 sets, daily range): BP systolic 72–158; BP diastolic 42–94
[2018-02-16] MEDS: LEVALBUTEROL HCL 1.25 MG/3 ML NEB NEB SCH ×4 (00:40→18:23)
[2018-02-16] MEDS: ACETAMINOPHEN 650 mg PER 20 mL UD GT PRN (00:45)
[2018-02-16] MEDS: DOBUTamine 1000MCG/ML 250 ML IV SCH ×6 (01:04→22:05)
[2018-02-16] MEDS: ATRACURIUM BESYLATE 1,000 MG in D5W 5% 150 ML IV SCH ×3 (01:12→21:54)
[2018-02-16] MEDS: InsuLIN REG 1unit/0.01ml Soln (100units/ml) SC SCH ×6 (02:09→22:15)
[2018-02-16] MEDS: ACCU-CHEK COMFORT CURVE STRIP VI SCH ×6 (02:09→22:15)
[2018-02-16] MEDS: MIDAZOLAM DRIP 50 mg/50mL 50 ML IV SCH ×6 (02:10→23:04)
[2018-02-16] MEDS: IPRATROPIUM BROM 0.5 MG/2.5ML INH SOL NEB SCH ×6 (02:25→22:40)
[2018-02-16] MEDS: ACETYLCYSTEINE 20%(200MG/ML) SOL 4ML NEB SCH ×6 (02:25→22:39)
[2018-02-16] MEDS: fentaNYL Drip 2500mCg/250mlNS 250 ML IV SCH ×2 (02:27→11:52)
[2018-02-16 04:08] LABS: Hematocrit 34.1 % (36.0-46.0); Hemoglobin 10.8 g/dL (12.2-16.2); Mean Corpuscular Hemoglobin 28.6 pg (28.0-32.0); Mean Corpuscular Hgb Conc. 31.7 g/dL (32.0-36.0); Platelet Count (auto) 119 10^3/uL (140-450); Red Blood Cells 3.79 10^6/uL (4.0-5.20); Red Cell Distribution Width 18.8 % (11.8-14.3)
[2018-02-16 04:31] LABS: Albumin 2.7 g/dL (3.4-5.0); BUN/Creatinine Ratio 58.8; Bilirubin, Total 3.3 mg/dL (0.2-1.0); Calcium 8.7 mg/dL (8.5-10.1); Potassium 4.3 mmol/L (3.5-5.1); Total Protein 6.4 g/dL (6.4-8.2)
[2018-02-16 04:37] LABS: Basophils % (manual) 0 (0.0-2.0); Blast Cells 0; Metamyelocytes % 0; Promyelocytes % 0; Reactive Lymphocytes 0
[2018-02-16 04:41] LABS: Magnesium 2.1 mg/dL (1.6-2.6); Phosphorus 7.3 mg/dL (2.5-4.90)
[2018-02-16 05:03] LABS: Band Neutrophils % (manual) 8; Eosinophils % (manual) 1 (0-7); Lymphocytes % (manual) 4 (10.0-50.0); Monocytes % (manual) 3 (0-12); Myelocytes % 1
[2018-02-16] MEDS: METOCLOPRAMIDE HCL 5MG/ml INJ 2ml VIAL IV SCH ×3 (05:31→22:01)
[2018-02-16] MEDS: NYSTATIN (MOUTH-THROAT) 500,000 UNITS/5 ML SUSP MT SCH ×4 (05:31→22:02)
[2018-02-16] MEDS: BUMETANIDE INJECTION 25 MG in GIVE UN-DILUTED 0 ML IV SCH ×3 (06:45→22:15)
[2018-02-16] MEDS: cefTRIAXone 1GM/10ml IVPUSH 10 ML IV SCH (07:56)
[2018-02-16] MEDS: SILDENAFIL CITRATE 20 MG TAB PO SCH ×3 (07:56→19:51)
[2018-02-16] MEDS: PANTOPRAZOLE 40 MG/10 ML VIAL IV SCH ×2 (09:38→22:02)
[2018-02-16] MEDS: LACTULOSE 20Gm/30ML SOLN GT SCH ×2 (09:38→22:01)
[2018-02-16] MEDS: POTASSIUM CHL 10% (20 MEQ/15ML) 15ml ORAL SOLN GT SCH ×2 (09:38→22:05)
[2018-02-16] MEDS: LEVOTHYROXINE SODIUM 100 MCG/5 ML INJ IV SCH (09:39)
[2018-02-16] MEDS: SODIUM CHLOR 0.9% PF (SALINE LOCK) 10ML VIAL/SYR IV SCH ×2 (09:39→22:03)
[2018-02-16] MEDS: OPSUMIT 10 MG NG SCH (09:40)
[2018-02-16] MEDS: FONDAPARINUX SOD 2.5mg/0.5ml SYRINGE SC SCH (09:40)
[2018-02-16] MEDS: INSULIN LANTUS (GLARGINE) 1 /0.01ml (100units/ml) SC SCH ×2 (09:40→22:15)
[2018-02-16] MEDS: BUDESONIDE (INHALATION) 0.5 MG/2 ML NEB NEB SCH ×2 (10:03→22:39)
[2018-02-16] MEDS: PROPOFOL 100 ML IV SCH (12:12)
[2018-02-16] MEDS ORDERED: TPN PER PHARMACY 0 ML IV SCH (13:15)
[2018-02-16] MEDS: VASOPRESSIN 50 UNITS in D5W 5% 247.5 ML IV SCH (19:40)
[2018-02-16] MEDS ORDERED: TPN PER PHARMACY IV NR ×9 (20:00)
[2018-02-16] MEDS: methylPREDNISolone SOD SUCC 40 MG/ML VL IV SCH (22:01)
[2018-02-16] MEDS: NOREPINEPHRINE BITARTRATE 32 MG in D5W 5% 218 ML IV SCH (23:00)
[2018-02-17] VITALS (107 sets, daily range): BP systolic 93–153; BP diastolic 44–97
[2018-02-17] MEDS: LEVALBUTEROL HCL 1.25 MG/3 ML NEB NEB SCH ×4 (00:18→18:23)
[2018-02-17] MEDS: IPRATROPIUM BROM 0.5 MG/2.5ML INH SOL NEB SCH ×6 (02:09→22:02)
[2018-02-17] MEDS: ACETYLCYSTEINE 20%(200MG/ML) SOL 4ML NEB SCH ×6 (02:09→22:02)
[2018-02-17] MEDS: ACCU-CHEK COMFORT CURVE STRIP VI SCH ×6 (02:25→22:25)
[2018-02-17] MEDS: InsuLIN REG 1unit/0.01ml Soln (100units/ml) SC SCH ×6 (02:25→22:25)
[2018-02-17] MEDS: DOBUTamine 1000MCG/ML 250 ML IV SCH ×5 (02:34→22:00)
[2018-02-17] MEDS: MIDAZOLAM DRIP 50 mg/50mL 50 ML IV SCH ×6 (02:34→21:00)
[2018-02-17] MEDS: fentaNYL Drip 2500mCg/250mlNS 250 ML IV SCH ×2 (05:31→21:00)
[2018-02-17] MEDS: METOCLOPRAMIDE HCL 5MG/ml INJ 2ml VIAL IV SCH ×3 (05:32→22:25)
[2018-02-17] MEDS: NYSTATIN (MOUTH-THROAT) 500,000 UNITS/5 ML SUSP MT SCH ×4 (05:32→22:25)
[2018-02-17] MEDS: methylPREDNISolone SOD SUCC 40 MG/ML VL IV SCH ×3 (05:32→22:25)
[2018-02-17 05:33] LABS: Hematocrit 32.2 % (36.0-46.0); Hemoglobin 10.2 g/dL (12.2-16.2); Mean Corpuscular Hemoglobin 28.5 pg (28.0-32.0); Mean Corpuscular Hgb Conc. 31.6 g/dL (32.0-36.0); Platelet Count (auto) 127 10^3/uL (140-450); Red Blood Cells 3.58 10^6/uL (4.0-5.20); Red Cell Distribution Width 18.8 % (11.8-14.3); White Blood Cell 14.9 10^3/uL (4.4-10.8)
[2018-02-17 05:52] LABS: Basophils % (manual) 0 (0.0-2.0); Blast Cells 0; Eosinophils % (manual) 0 (0-7); Metamyelocytes % 0; Myelocytes % 0; Promyelocytes % 0; Reactive Lymphocytes 0
[2018-02-17 05:57] LABS: Albumin 2.4 g/dL (3.4-5.0); Bilirubin, Total 3.3 mg/dL (0.2-1.0); Calcium 8.8 mg/dL (8.5-10.1); Magnesium 2.4 mg/dL (1.6-2.6); Phosphorus 3.9 mg/dL (2.5-4.90); Potassium 3.9 mmol/L (3.5-5.1); Total Protein 6.4 g/dL (6.4-8.2)
[2018-02-17 06:16] LABS: Band Neutrophils % (manual) 7; Lymphocytes % (manual) 6 (10.0-50.0); Monocytes % (manual) 1 (0-12)
[2018-02-17] MEDS: SILDENAFIL CITRATE 20 MG TAB PO SCH ×3 (08:12→20:10)
[2018-02-17] MEDS: cefTRIAXone 1GM/10ml IVPUSH 10 ML IV SCH (08:12)
[2018-02-17] MEDS: POTASSIUM CHL 10% (20 MEQ/15ML) 15ml ORAL SOLN GT SCH ×2 (09:12→22:25)
[2018-02-17] MEDS: LACTULOSE 20Gm/30ML SOLN GT SCH ×2 (09:12→22:25)
[2018-02-17] MEDS: PANTOPRAZOLE 40 MG/10 ML VIAL IV SCH ×2 (09:13→22:25)
[2018-02-17] MEDS: SODIUM CHLOR 0.9% PF (SALINE LOCK) 10ML VIAL/SYR IV SCH ×2 (09:13→22:25)
[2018-02-17] MEDS: LEVOTHYROXINE SODIUM 100 MCG/5 ML INJ IV SCH (09:14)
[2018-02-17] MEDS: OPSUMIT 10 MG NG SCH (09:15)
[2018-02-17] MEDS: FONDAPARINUX SOD 2.5mg/0.5ml SYRINGE SC SCH (09:15)
[2018-02-17] MEDS: INSULIN LANTUS (GLARGINE) 1 /0.01ml (100units/ml) SC SCH ×2 (09:22→22:25)
[2018-02-17] MEDS: BUDESONIDE (INHALATION) 0.5 MG/2 ML NEB NEB SCH ×2 (10:00→18:22)
[2018-02-17] MEDS ORDERED: INSULIN LANTUS (GLARGINE) 1 /0.01ml (100units/ml) SC ONE (10:15)
[2018-02-17] MEDS: PROPOFOL 100 ML IV SCH (11:58)
[2018-02-17] MEDS: ATRACURIUM BESYLATE 1,000 MG in D5W 5% 150 ML IV SCH ×2 (13:00→23:00)
[2018-02-17 13:59] LABS: INR 1.08 (0.9-1.15); Partial Thromboplastin Time 27.4 sec (23.78-33.04); Prothrombin Time 11.5 sec (9.27-12.13)
[2018-02-17] MEDS: FUROSEMIDE INJECTION 500 MG in SODIUM CHL 0.9% 450 ML IV SCH (14:44)
[2018-02-17] MEDS ORDERED: TPN PER PHARMACY IV NR ×10 (20:00)
[2018-02-17] MEDS: NOREPINEPHRINE BITARTRATE 32 MG in D5W 5% 218 ML IV SCH (22:00)
[2018-02-17] MEDS: VASOPRESSIN 50 UNITS in D5W 5% 247.5 ML IV SCH (23:30)
[2018-02-18] VITALS (106 sets, daily range): BP systolic 94–140; BP diastolic 37–86
[2018-02-18] MEDS: DOBUTamine 1000MCG/ML 250 ML IV SCH ×6 (00:20→23:00)
[2018-02-18] MEDS: MIDAZOLAM DRIP 50 mg/50mL 50 ML IV SCH ×6 (00:52→22:10)
[2018-02-18] MEDS: ACCU-CHEK COMFORT CURVE STRIP VI SCH ×6 (02:00→22:20)
[2018-02-18] MEDS: InsuLIN REG 1unit/0.01ml Soln (100units/ml) SC SCH ×6 (02:00→22:25)
[2018-02-18] MEDS ORDERED: IPRATROPIUM BROM 0.5 MG/2.5ML INH SOL ONE (02:02)
[2018-02-18] MEDS: ACETYLCYSTEINE 20%(200MG/ML) SOL 4ML NEB SCH ×6 (02:10→22:09)
[2018-02-18] MEDS: IPRATROPIUM BROM 0.5 MG/2.5ML INH SOL NEB SCH ×6 (02:10→22:08)
[2018-02-18] MEDS: LEVALBUTEROL HCL 1.25 MG/3 ML NEB NEB SCH ×5 (02:10→22:09)
[2018-02-18 05:05] LABS: Basophils # (auto) 0.1 uL; Basophils % (auto) 0.6 % (0.0-2.0); Eosinophils # (auto) 0 uL; Hematocrit 30.6 % (36.0-46.0); Hemoglobin 9.7 g/dL (12.2-16.2); Lymphocytes # (auto) 0.5 uL; Lymphocytes % (auto) 3.4 % (10.0-50.0); Mean Corpuscular Hemoglobin 28.4 pg (28.0-32.0); Mean Corpuscular Hgb Conc. 31.6 g/dL (32.0-36.0); Mean Corpuscular Volume 89.8 fL (80.0-100.0); Monocytes # (auto) 0.4 uL; Monocytes % (auto) 2.9 % (0.0-12.0); Neutrophils # (auto) 13.2 uL; Neutrophils % (auto) 93.1 % (37.0-80.0); Nucleated Red Blood Cells % 0.1 %; Platelet Count (auto) 137 10^3/uL (140-450); Red Blood Cells 3.41 10^6/uL (4.0-5.20); Red Cell Distribution Width 18.6 % (11.8-14.3); White Blood Cell 14.1 10^3/uL (4.4-10.8)
[2018-02-18 05:24] LABS: Albumin 2.5 g/dL (3.4-5.0); BUN/Creatinine Ratio 73.8; Calcium 9.2 mg/dL (8.5-10.1); Magnesium 2.6 mg/dL (1.6-2.6); Phosphorus 4.3 mg/dL (2.5-4.90); Potassium 4.4 mmol/L (3.5-5.1); Total Protein 6.4 g/dL (6.4-8.2)
[2018-02-18] MEDS: methylPREDNISolone SOD SUCC 40 MG/ML VL IV SCH ×3 (06:15→22:20)
[2018-02-18] MEDS: METOCLOPRAMIDE HCL 5MG/ml INJ 2ml VIAL IV SCH ×3 (06:15→22:20)
[2018-02-18] MEDS: NYSTATIN (MOUTH-THROAT) 500,000 UNITS/5 ML SUSP MT SCH ×4 (06:15→22:20)
[2018-02-18] MEDS: BUDESONIDE (INHALATION) 0.5 MG/2 ML NEB NEB SCH ×2 (06:20→22:10)
[2018-02-18] MEDS: INSULIN LANTUS (GLARGINE) 1 /0.01ml (100units/ml) SC SCH ×2 (07:04→22:25)
[2018-02-18] MEDS ORDERED: BENZOCAINE (DENTAL) 20 % SPRAY 60ML MT ONE (08:25)
[2018-02-18] MEDS ORDERED: SODIUM CHLORIDE LOCK 30 ML ONE (08:26)
[2018-02-18] MEDS ORDERED: EPINEPHrine HCL 1 MG/1 ML AMP ONE (08:26)
[2018-02-18] MEDS ORDERED: HYDROmorphone HCL 2 MG/ML VL ONE (08:26)
[2018-02-18] MEDS ORDERED: LIDOCAINE HCL 2% TOP JELLY 5ML TOP ONE (08:27)
[2018-02-18] MEDS ORDERED: MIDAZOLAM HCL 5 MG/ML-1ML VIAL ONE (08:27)
[2018-02-18] MEDS ORDERED: NALOXONE HCL 0.4 MG/ML VIAL ONE (08:34)
[2018-02-18] MEDS ORDERED: FLUMAZENIL 0.1 MG/ML INJ 10ML MDV IV ONE (08:34)
[2018-02-18] MEDS ORDERED: GLYCOPYRROLATE 0.2 MG/ML 1ML VIAL ONE (08:36)
[2018-02-18] MEDS ORDERED: SODIUM CHLORIDE LOCK 10 ML ONE (08:39)
[2018-02-18] MEDS ORDERED: fentaNYL CITRATE 100 MCG/2 ML VL ONE (08:40)
[2018-02-18] MEDS ORDERED: LIDOCAINE 2% (LOCAL ANESTH.) PF 5ml SDV ONE (08:43)
[2018-02-18] MEDS: ATRACURIUM BESYLATE 1,000 MG in D5W 5% 150 ML IV SCH ×2 (09:51→22:10)
[2018-02-18] MEDS: cefTRIAXone 1GM/10ml IVPUSH 10 ML IV SCH (10:33)
[2018-02-18] MEDS: SILDENAFIL CITRATE 20 MG TAB PO SCH ×3 (10:33→20:00)
[2018-02-18] MEDS: LACTULOSE 20Gm/30ML SOLN GT SCH ×2 (10:33→22:20)
[2018-02-18] MEDS: PANTOPRAZOLE 40 MG/10 ML VIAL IV SCH ×2 (10:33→22:20)
[2018-02-18] MEDS: LEVOTHYROXINE SODIUM 100 MCG/5 ML INJ IV SCH (10:34)
[2018-02-18] MEDS: FONDAPARINUX SOD 2.5mg/0.5ml SYRINGE SC SCH (10:36)
[2018-02-18] MEDS: OPSUMIT 10 MG NG SCH (10:36)
[2018-02-18] MEDS: SODIUM CHLOR 0.9% PF (SALINE LOCK) 10ML VIAL/SYR IV SCH ×2 (10:38→22:20)
[2018-02-18] MEDS: fentaNYL Drip 2500mCg/250mlNS 250 ML IV SCH ×2 (11:27→23:00)
[2018-02-18] MEDS: POTASSIUM CHL 10% (20 MEQ/15ML) 15ml ORAL SOLN GT SCH ×2 (12:02→22:20)
[2018-02-18] MEDS: PROPOFOL 100 ML IV SCH (14:25)
[2018-02-18] MEDS: FUROSEMIDE INJECTION 500 MG in SODIUM CHL 0.9% 450 ML IV SCH (14:54)
[2018-02-18] MEDS ORDERED: TPN PER PHARMACY IV NR ×10 (20:00)
[2018-02-18] MEDS: ACETAMINOPHEN 650 mg PER 20 mL UD GT PRN (21:05)
[2018-02-18] MEDS: NOREPINEPHRINE BITARTRATE 32 MG in D5W 5% 218 ML IV SCH (22:00)
[2018-02-18] MEDS: VASOPRESSIN 50 UNITS in D5W 5% 247.5 ML IV SCH (23:30)
[2018-02-19] VITALS (108 sets, daily range): BP systolic 95–142; BP diastolic 36–86
[2018-02-19] MEDS: IPRATROPIUM BROM 0.5 MG/2.5ML INH SOL NEB SCH ×6 (02:07→22:41)
[2018-02-19] MEDS: LEVALBUTEROL HCL 1.25 MG/3 ML NEB NEB SCH ×6 (02:08→22:41)
[2018-02-19] MEDS: ACETYLCYSTEINE 20%(200MG/ML) SOL 4ML NEB SCH ×6 (02:09→22:41)
[2018-02-19] MEDS: ACCU-CHEK COMFORT CURVE STRIP VI SCH ×6 (02:30→22:00)
[2018-02-19] MEDS: InsuLIN REG 1unit/0.01ml Soln (100units/ml) SC SCH ×6 (02:30→22:00)
[2018-02-19] MEDS: MIDAZOLAM DRIP 50 mg/50mL 50 ML IV SCH ×6 (03:00→23:24)
[2018-02-19] MEDS: DOBUTamine 1000MCG/ML 250 ML IV SCH ×5 (04:10→21:00)
[2018-02-19 05:12] LABS: Basophils # (auto) 0 uL; Basophils % (auto) 0.1 % (0.0-2.0); Eosinophils # (auto) 0 uL; Hematocrit 30.6 % (36.0-46.0); Hemoglobin 9.7 g/dL (12.2-16.2); Lymphocytes # (auto) 0.5 uL; Lymphocytes % (auto) 3.7 % (10.0-50.0); Mean Corpuscular Hemoglobin 28.4 pg (28.0-32.0); Mean Corpuscular Hgb Conc. 31.7 g/dL (32.0-36.0); Mean Corpuscular Volume 89.6 fL (80.0-100.0); Monocytes # (auto) 0.5 uL; Neutrophils # (auto) 12.4 uL; Neutrophils % (auto) 92.2 % (37.0-80.0); Nucleated Red Blood Cells % 0.1 %; Platelet Count (auto) 145 10^3/uL (140-450); Red Blood Cells 3.41 10^6/uL (4.0-5.20); Red Cell Distribution Width 18.8 % (11.8-14.3); White Blood Cell 13.5 10^3/uL (4.4-10.8)
[2018-02-19 05:28] LABS: Albumin 2.4 g/dL (3.4-5.0); BUN/Creatinine Ratio 87.7; Calcium 8.7 mg/dL (8.5-10.1)
[2018-02-19 05:30] LABS: Bilirubin, Total 1.5 mg/dL (0.2-1.0); Total Protein 6.3 g/dL (6.4-8.2)
[2018-02-19 05:37] LABS: Magnesium 2.3 mg/dL (1.6-2.6); Phosphorus 5.5 mg/dL (2.5-4.90)
[2018-02-19] MEDS: BUDESONIDE (INHALATION) 0.5 MG/2 ML NEB NEB SCH ×2 (06:20→22:41)
[2018-02-19] MEDS: NYSTATIN (MOUTH-THROAT) 500,000 UNITS/5 ML SUSP MT SCH ×4 (06:25→22:52)
[2018-02-19] MEDS: METOCLOPRAMIDE HCL 5MG/ml INJ 2ml VIAL IV SCH ×3 (06:25→22:52)
[2018-02-19] MEDS: methylPREDNISolone SOD SUCC 40 MG/ML VL IV SCH ×3 (06:25→22:51)
[2018-02-19] MEDS: INSULIN LANTUS (GLARGINE) 1 /0.01ml (100units/ml) SC SCH ×2 (07:08→22:00)
[2018-02-19] MEDS: SILDENAFIL CITRATE 20 MG TAB PO SCH ×3 (08:09→21:01)
[2018-02-19] MEDS ORDERED: METOLAZONE 5 MG TAB PO ONE (09:45)
[2018-02-19] MEDS ORDERED: HYDROcodone-ACET 5/325MG TAB PO PRN (09:45)
[2018-02-19] MEDS: ATRACURIUM BESYLATE 1,000 MG in D5W 5% 150 ML IV SCH (10:34)
[2018-02-19] MEDS: PANTOPRAZOLE 40 MG/10 ML VIAL IV SCH ×2 (10:37→22:51)
[2018-02-19] MEDS: LEVOTHYROXINE SODIUM 100 MCG/5 ML INJ IV SCH (10:37)
[2018-02-19] MEDS: cefTRIAXone 1GM/10ml IVPUSH 10 ML IV SCH (10:37)
[2018-02-19] MEDS: LACTULOSE 20Gm/30ML SOLN GT SCH ×2 (10:38→22:00)
[2018-02-19] MEDS: POTASSIUM CHL 10% (20 MEQ/15ML) 15ml ORAL SOLN GT SCH ×2 (10:39→22:53)
[2018-02-19] MEDS: OPSUMIT 10 MG NG SCH (10:41)
[2018-02-19] MEDS: SODIUM CHLOR 0.9% PF (SALINE LOCK) 10ML VIAL/SYR IV SCH ×2 (10:41→22:00)
[2018-02-19] MEDS: FONDAPARINUX SOD 2.5mg/0.5ml SYRINGE SC SCH (10:41)
[2018-02-19] MEDS ORDERED: MIDAZOLAM DRIP 50 mg/50mL 50 ML IV ONE (10:53)
[2018-02-19] MEDS: FUROSEMIDE INJECTION 500 MG in SODIUM CHL 0.9% 450 ML IV SCH (15:40)
[2018-02-19] MEDS: PROPOFOL 100 ML IV SCH (15:57)
[2018-02-19] MEDS: fentaNYL Drip 2500mCg/250mlNS 250 ML IV SCH (18:44)
[2018-02-19] MEDS ORDERED: TPN PER PHARMACY IV NR ×10 (20:00)
[2018-02-19] MEDS: NOREPINEPHRINE BITARTRATE 32 MG in D5W 5% 218 ML IV SCH (22:00)
[2018-02-20] VITALS (105 sets, daily range): BP systolic 89–155; BP diastolic 34–83
[2018-02-20] MEDS: DOBUTamine 1000MCG/ML 250 ML IV SCH ×5 (01:16→18:35)
[2018-02-20] MEDS: InsuLIN REG 1unit/0.01ml Soln (100units/ml) SC SCH ×6 (02:00→22:26)
[2018-02-20] MEDS: ACCU-CHEK COMFORT CURVE STRIP VI SCH ×6 (02:00→22:25)
[2018-02-20] MEDS: IPRATROPIUM BROM 0.5 MG/2.5ML INH SOL NEB SCH ×6 (02:21→22:32)
[2018-02-20] MEDS: LEVALBUTEROL HCL 1.25 MG/3 ML NEB NEB SCH ×6 (02:21→22:32)
[2018-02-20] MEDS: ACETYLCYSTEINE 20%(200MG/ML) SOL 4ML NEB SCH ×6 (02:21→22:32)
[2018-02-20] MEDS: MIDAZOLAM DRIP 50 mg/50mL 50 ML IV SCH ×5 (03:47→22:24)
[2018-02-20 04:01] LABS: Hematocrit 31.3 % (36.0-46.0); Hemoglobin 10.1 g/dL (12.2-16.2); Mean Corpuscular Hemoglobin 28.5 pg (28.0-32.0); Mean Corpuscular Hgb Conc. 32.4 g/dL (32.0-36.0); Mean Corpuscular Volume 87.8 fL (80.0-100.0); Platelet Count (auto) 155 10^3/uL (140-450); Red Blood Cells 3.56 10^6/uL (4.0-5.20); White Blood Cell 13.9 10^3/uL (4.4-10.8)
[2018-02-20 04:25] LABS: Albumin 2.6 g/dL (3.4-5.0); BUN/Creatinine Ratio 91.7; Bilirubin, Total 1.7 mg/dL (0.2-1.0); Calcium 8.9 mg/dL (8.5-10.1); Magnesium 2.6 mg/dL (1.6-2.6); Phosphorus 3.8 mg/dL (2.5-4.90); Potassium 4.2 mmol/L (3.5-5.1); Pre Albumin 32.9 mg/dL (20.0-40.0); Total Protein 6.3 g/dL (6.4-8.2)
[2018-02-20 04:31] LABS: Basophils % (manual) 0 (0.0-2.0); Blast Cells 0; Eosinophils % (manual) 0 (0-7); Metamyelocytes % 0; Myelocytes % 0; Promyelocytes % 0; Reactive Lymphocytes 0
[2018-02-20] MEDS: METOCLOPRAMIDE HCL 5MG/ml INJ 2ml VIAL IV SCH ×3 (05:54→22:24)
[2018-02-20] MEDS: methylPREDNISolone SOD SUCC 40 MG/ML VL IV SCH ×3 (05:54→22:24)
[2018-02-20] MEDS: NYSTATIN (MOUTH-THROAT) 500,000 UNITS/5 ML SUSP MT SCH ×4 (05:54→22:24)
[2018-02-20] MEDS: fentaNYL Drip 2500mCg/250mlNS 250 ML IV SCH ×3 (06:32→19:00)
[2018-02-20] MEDS: INSULIN LANTUS (GLARGINE) 1 /0.01ml (100units/ml) SC SCH ×2 (06:35→22:00)
[2018-02-20 06:45] LABS: Band Neutrophils % (manual) 14; Lymphocytes % (manual) 1 (10.0-50.0); Monocytes % (manual) 4 (0-12)
[2018-02-20] MEDS: SILDENAFIL CITRATE 20 MG TAB PO SCH ×3 (08:29→20:00)
[2018-02-20] MEDS: cefTRIAXone 1GM/10ml IVPUSH 10 ML IV SCH (08:41)
[2018-02-20] MEDS ORDERED: FLEET ENEMA(ADULT) 135 ML PR ONE (10:00)
[2018-02-20] MEDS: LACTULOSE 20Gm/30ML SOLN GT SCH ×2 (10:07→22:24)
[2018-02-20] MEDS: LEVOTHYROXINE SODIUM 100 MCG/5 ML INJ IV SCH (10:11)
[2018-02-20] MEDS: PANTOPRAZOLE 40 MG/10 ML VIAL IV SCH ×2 (10:11→22:24)
[2018-02-20] MEDS: OPSUMIT 10 MG NG SCH (10:11)
[2018-02-20] MEDS: FONDAPARINUX SOD 2.5mg/0.5ml SYRINGE SC SCH (10:12)
[2018-02-20] MEDS: SODIUM CHLOR 0.9% PF (SALINE LOCK) 10ML VIAL/SYR IV SCH ×2 (10:13→22:24)
[2018-02-20] MEDS: FREE WATER GT SCH ×4 (10:13→22:24)
[2018-02-20] MEDS: METOLAZONE 5 MG TAB PO SCH (10:24)
[2018-02-20] MEDS: BUDESONIDE (INHALATION) 0.5 MG/2 ML NEB NEB SCH ×2 (10:30→19:00)
[2018-02-20] MEDS: PROPOFOL 100 ML IV SCH (13:40)
[2018-02-20] MEDS: FUROSEMIDE INJECTION 500 MG in SODIUM CHL 0.9% 450 ML IV SCH (15:52)
[2018-02-20] MEDS: POTASSIUM CHL 10% (20 MEQ/15ML) 15ml ORAL SOLN GT SCH ×2 (16:33→22:24)
[2018-02-20] MEDS ORDERED: TPN PER PHARMACY IV NR ×8 (20:00)
[2018-02-20] MEDS: NOREPINEPHRINE BITARTRATE 32 MG in D5W 5% 218 ML IV SCH (22:00)
[2018-02-21] VITALS (79 sets, daily range): BP systolic 79–116; BP diastolic 32–84
[2018-02-21] MEDS: InsuLIN REG 1unit/0.01ml Soln (100units/ml) SC SCH ×6 (02:00→22:29)
[2018-02-21] MEDS: ACCU-CHEK COMFORT CURVE STRIP VI SCH ×6 (02:00→22:29)
[2018-02-21] MEDS: LEVALBUTEROL HCL 1.25 MG/3 ML NEB NEB SCH ×6 (02:08→22:13)
[2018-02-21] MEDS: IPRATROPIUM BROM 0.5 MG/2.5ML INH SOL NEB SCH ×6 (02:08→22:13)
[2018-02-21] MEDS: ACETYLCYSTEINE 20%(200MG/ML) SOL 4ML NEB SCH ×6 (02:09→22:13)
[2018-02-21] MEDS: FREE WATER GT SCH ×6 (02:27→22:27)
[2018-02-21] MEDS: MIDAZOLAM DRIP 50 mg/50mL 50 ML IV SCH ×3 (02:28→23:35)
[2018-02-21] MEDS: DOBUTamine 1000MCG/ML 250 ML IV SCH ×2 (02:30→21:24)
[2018-02-21 04:09] LABS: Hematocrit 31.4 % (36.0-46.0); Hemoglobin 10.3 g/dL (12.2-16.2); Mean Corpuscular Hemoglobin 29.2 pg (28.0-32.0); Mean Corpuscular Hgb Conc. 32.8 g/dL (32.0-36.0); Mean Corpuscular Volume 88.9 fL (80.0-100.0); Platelet Count (auto) 191 10^3/uL (140-450); Red Blood Cells 3.54 10^6/uL (4.0-5.20); Red Cell Distribution Width 19.2 % (11.8-14.3); White Blood Cell 16.5 10^3/uL (4.4-10.8)
[2018-02-21 04:12] LABS: Basophils % (manual) 0 (0.0-2.0); Blast Cells 0; Metamyelocytes % 0; Myelocytes % 0; Promyelocytes % 0; Reactive Lymphocytes 0
[2018-02-21 04:53] LABS: Albumin 2.7 g/dL (3.4-5.0); BUN/Creatinine Ratio 108.4; Bilirubin, Total 2.2 mg/dL (0.2-1.0); Calcium 8.4 mg/dL (8.5-10.1); Magnesium 2.7 mg/dL (1.6-2.6); Phosphorus 7.1 mg/dL (2.5-4.90); Potassium 3.9 mmol/L (3.5-5.1); Total Protein 6.2 g/dL (6.4-8.2)
[2018-02-21] MEDS: methylPREDNISolone SOD SUCC 40 MG/ML VL IV SCH ×3 (06:00→22:27)
[2018-02-21] MEDS: METOCLOPRAMIDE HCL 5MG/ml INJ 2ml VIAL IV SCH ×3 (06:00→22:27)
[2018-02-21] MEDS: NYSTATIN (MOUTH-THROAT) 500,000 UNITS/5 ML SUSP MT SCH ×3 (06:00→22:27)
[2018-02-21 06:07] LABS: Band Neutrophils % (manual) 3; Eosinophils % (manual) 2 (0-7); Lymphocytes % (manual) 4 (10.0-50.0); Monocytes % (manual) 2 (0-12)
[2018-02-21] MEDS: INSULIN LANTUS (GLARGINE) 1 /0.01ml (100units/ml) SC SCH ×2 (07:02→22:29)
[2018-02-21] MEDS: SILDENAFIL CITRATE 20 MG TAB PO SCH ×3 (08:20→20:38)
[2018-02-21] MEDS: cefTRIAXone 1GM/10ml IVPUSH 10 ML IV SCH (08:59)
[2018-02-21] MEDS: ACETAMINOPHEN 650 mg PER 20 mL UD GT PRN (09:04)
[2018-02-21] MEDS: OPSUMIT 10 MG NG SCH (10:20)
[2018-02-21] MEDS: SODIUM CHLOR 0.9% PF (SALINE LOCK) 10ML VIAL/SYR IV SCH ×2 (10:20→22:29)
[2018-02-21] MEDS: LEVOTHYROXINE SODIUM 100 MCG/5 ML INJ IV SCH (10:21)
[2018-02-21] MEDS: METOLAZONE 5 MG TAB PO SCH (10:21)
[2018-02-21] MEDS: FONDAPARINUX SOD 2.5mg/0.5ml SYRINGE SC SCH (10:21)
[2018-02-21] MEDS: POTASSIUM CHL 10% (20 MEQ/15ML) 15ml ORAL SOLN GT SCH ×2 (10:22→22:28)
[2018-02-21] MEDS: PANTOPRAZOLE 40 MG/10 ML VIAL IV SCH ×2 (10:23→22:27)
[2018-02-21] MEDS: LACTULOSE 20Gm/30ML SOLN GT SCH ×2 (10:23→22:27)
[2018-02-21] MEDS ORDERED: NOREPINEPHRINE 8 MG/250ML KIT 250 ML IV ONE (12:00)
[2018-02-21] MEDS: BUDESONIDE (INHALATION) 0.5 MG/2 ML NEB NEB SCH ×2 (12:10→18:52)
[2018-02-21] MEDS: NOREPINEPHRINE BITARTRATE 32 MG in D5W 5% 218 ML IV SCH (12:15)
[2018-02-21] MEDS: FUROSEMIDE INJECTION 500 MG in SODIUM CHL 0.9% 450 ML IV SCH (13:00)
[2018-02-21] MEDS: PROPOFOL 100 ML IV SCH (13:40)
[2018-02-21] MEDS ORDERED: TPN PER PHARMACY IV NR ×9 (20:00)
[2018-02-22] VITALS (107 sets, daily range): BP systolic 86–124; BP diastolic 39–78
[2018-02-22] MEDS: DOBUTamine 1000MCG/ML 250 ML IV SCH ×4 (02:02→19:49)
[2018-02-22] MEDS: FREE WATER GT SCH ×6 (02:03→21:34)
[2018-02-22] MEDS: ACCU-CHEK COMFORT CURVE STRIP VI SCH ×11 (02:12→22:32)
[2018-02-22] MEDS: InsuLIN REG 1unit/0.01ml Soln (100units/ml) SC SCH ×2 (02:13→06:10)
[2018-02-22] MEDS: IPRATROPIUM BROM 0.5 MG/2.5ML INH SOL NEB SCH ×6 (02:29→22:18)
[2018-02-22] MEDS: LEVALBUTEROL HCL 1.25 MG/3 ML NEB NEB SCH ×6 (02:29→22:18)
[2018-02-22] MEDS: ACETYLCYSTEINE 20%(200MG/ML) SOL 4ML NEB SCH ×6 (02:29→22:18)
[2018-02-22] MEDS: MIDAZOLAM DRIP 50 mg/50mL 50 ML IV SCH ×3 (03:45→21:00)
[2018-02-22] MEDS: ACETAMINOPHEN 650 mg PER 20 mL UD GT PRN (04:00)
[2018-02-22 04:29] LABS: Hematocrit 32.9 % (36.0-46.0); Hemoglobin 10.5 g/dL (12.2-16.2); Mean Corpuscular Hemoglobin 28.5 pg (28.0-32.0); Platelet Count (auto) 204 10^3/uL (140-450); Red Blood Cells 3.69 10^6/uL (4.0-5.20); Red Cell Distribution Width 19.8 % (11.8-14.3); White Blood Cell 17.9 10^3/uL (4.4-10.8)
[2018-02-22 04:37] LABS: Albumin 2.8 g/dL (3.4-5.0); Calcium 8.6 mg/dL (8.5-10.1); Potassium 3.2 mmol/L (3.5-5.1)
[2018-02-22 04:41] LABS: BUN/Creatinine Ratio 125.9
[2018-02-22 04:42] LABS: Magnesium 2.8 mg/dL (1.6-2.6); Phosphorus 5.5 mg/dL (2.5-4.90)
[2018-02-22 04:47] LABS: Basophils % (manual) 0 (0.0-2.0); Bilirubin, Total 2.1 mg/dL (0.2-1.0); Blast Cells 0; Metamyelocytes % 0; Myelocytes % 0; Promyelocytes % 0; Reactive Lymphocytes 0; Total Protein 6.7 g/dL (6.4-8.2)
[2018-02-22] MEDS: NYSTATIN (MOUTH-THROAT) 500,000 UNITS/5 ML SUSP MT SCH ×4 (06:09→21:32)
[2018-02-22] MEDS: METOCLOPRAMIDE HCL 5MG/ml INJ 2ml VIAL IV SCH ×3 (06:10→21:32)
[2018-02-22] MEDS: methylPREDNISolone SOD SUCC 40 MG/ML VL IV SCH ×3 (06:10→21:33)
[2018-02-22] MEDS: fentaNYL Drip 2500mCg/250mlNS 250 ML IV SCH ×2 (06:14→19:47)
[2018-02-22] MEDS ORDERED: DEXTROSE (50%) 50ML SYRG IV PRN (07:15)
[2018-02-22] MEDS: OPSUMIT 10 MG NG SCH (10:00)
[2018-02-22] MEDS: SILDENAFIL CITRATE 20 MG TAB PO SCH ×3 (10:08→19:59)
[2018-02-22] MEDS: POTASSIUM CHL 10% (20 MEQ/15ML) 15ml ORAL SOLN GT SCH ×2 (10:09→21:34)
[2018-02-22] MEDS: POTASSIUM CHL 20MEQ/100ML 100 ML IV SCH ×3 (10:09→15:10)
[2018-02-22] MEDS: PANTOPRAZOLE 40 MG/10 ML VIAL IV SCH ×2 (10:09→21:32)
[2018-02-22] MEDS: LACTULOSE 20Gm/30ML SOLN GT SCH ×2 (10:09→21:32)
[2018-02-22] MEDS: cefTRIAXone 1GM/10ml IVPUSH 10 ML IV SCH (10:10)
[2018-02-22] MEDS: LEVOTHYROXINE SODIUM 100 MCG/5 ML INJ IV SCH (10:10)
[2018-02-22] MEDS: SODIUM CHLOR 0.9% PF (SALINE LOCK) 10ML VIAL/SYR IV SCH ×2 (10:10→21:34)
[2018-02-22] MEDS: FONDAPARINUX SOD 2.5mg/0.5ml SYRINGE SC SCH (10:14)
[2018-02-22] MEDS: BUDESONIDE (INHALATION) 0.5 MG/2 ML NEB NEB SCH ×2 (10:20→18:24)
[2018-02-22] MEDS: InsuLIN R (HUMAN) 100 UNITS in SODIUM CHL 0.9% 99 ML IV SCH ×2 (10:37→11:27)
[2018-02-22 11:17] LABS: Band Neutrophils % (manual) 1; Eosinophils % (manual) 1 (0-7); Lymphocytes % (manual) 5 (10.0-50.0); Monocytes % (manual) 5 (0-12)
[2018-02-22] MEDS: PROPOFOL 100 ML IV SCH (13:40)
[2018-02-22] MEDS: FUROSEMIDE INJECTION 500 MG in SODIUM CHL 0.9% 450 ML IV SCH (17:35)
[2018-02-22] MEDS ORDERED: TPN PER PHARMACY IV NR ×9 (20:00)
[2018-02-22] MEDS: NOREPINEPHRINE BITARTRATE 32 MG in D5W 5% 218 ML IV SCH (22:00)
[2018-02-23] VITALS (76 sets, daily range): BP systolic 82–126; BP diastolic 40–71
[2018-02-23] MEDS: DOBUTamine 1000MCG/ML 250 ML IV SCH ×3 (00:01→09:34)
[2018-02-23] MEDS: ACCU-CHEK COMFORT CURVE STRIP VI SCH ×11 (00:01→23:49)
[2018-02-23] MEDS: MIDAZOLAM DRIP 50 mg/50mL 50 ML IV SCH ×6 (01:12→23:55)
[2018-02-23] MEDS: FREE WATER GT SCH ×6 (02:02→22:47)
[2018-02-23] MEDS: LEVALBUTEROL HCL 1.25 MG/3 ML NEB NEB SCH ×6 (02:28→22:32)
[2018-02-23] MEDS: IPRATROPIUM BROM 0.5 MG/2.5ML INH SOL NEB SCH ×6 (02:28→22:32)
[2018-02-23] MEDS: ACETYLCYSTEINE 20%(200MG/ML) SOL 4ML NEB SCH ×6 (02:29→22:32)
[2018-02-23] MEDS: methylPREDNISolone SOD SUCC 40 MG/ML VL IV SCH (06:23)
[2018-02-23] MEDS: NYSTATIN (MOUTH-THROAT) 500,000 UNITS/5 ML SUSP MT SCH ×4 (06:23→22:45)
[2018-02-23] MEDS: METOCLOPRAMIDE HCL 5MG/ml INJ 2ml VIAL IV SCH ×3 (06:23→22:44)
[2018-02-23 06:54] LABS: Hematocrit 33.6 % (36.0-46.0); Hemoglobin 10.6 g/dL (12.2-16.2); Mean Corpuscular Hemoglobin 28.9 pg (28.0-32.0); Mean Corpuscular Hgb Conc. 31.6 g/dL (32.0-36.0); Mean Corpuscular Volume 91.3 fL (80.0-100.0); Platelet Count (auto) 189 10^3/uL (140-450); Red Blood Cells 3.68 10^6/uL (4.0-5.20); White Blood Cell 17.4 10^3/uL (4.4-10.8)
[2018-02-23 07:09] LABS: Albumin 2.8 g/dL (3.4-5.0); BUN/Creatinine Ratio 175.4; Bilirubin, Total 1.6 mg/dL (0.2-1.0); Calcium 8.9 mg/dL (8.5-10.1); Magnesium 3.1 mg/dL (1.6-2.6); Partial Thromboplastin Time 22.3 sec (23.78-33.04); Phosphorus 4.5 mg/dL (2.5-4.90); Potassium 3.2 mmol/L (3.5-5.1); Prothrombin Time 10.7 sec (9.27-12.13); Total Protein 6.7 g/dL (6.4-8.2)
[2018-02-23 07:16] LABS: Red Cell Distribution Width 20.6 % (11.8-14.3)
[2018-02-23 07:17] LABS: Basophils % (manual) 0 (0.0-2.0); Blast Cells 0; Eosinophils % (manual) 0 (0-7); Metamyelocytes % 0; Myelocytes % 0; Promyelocytes % 0; Reactive Lymphocytes 0
[2018-02-23] MEDS ORDERED: ONDANSETRON HCL 4 MG/2 ML VIAL IV PRN (07:45)
[2018-02-23] MEDS ORDERED: cloNIDine HCL 0.1 MG TAB PO PRN (07:45)
[2018-02-23] MEDS: SILDENAFIL CITRATE 20 MG TAB PO SCH ×3 (08:23→20:04)
[2018-02-23 08:26] LABS: Band Neutrophils % (manual) 6; Lymphocytes % (manual) 9 (10.0-50.0); Monocytes % (manual) 4 (0-12)
[2018-02-23] MEDS: cefTRIAXone 1GM/10ml IVPUSH 10 ML IV SCH (09:26)
[2018-02-23] MEDS: SODIUM CHLOR 0.9% PF (SALINE LOCK) 10ML VIAL/SYR IV SCH ×2 (09:27→22:45)
[2018-02-23] MEDS: LEVOTHYROXINE SODIUM 100 MCG/5 ML INJ IV SCH (09:27)
[2018-02-23] MEDS: POTASSIUM CHL 10% (20 MEQ/15ML) 15ml ORAL SOLN GT SCH ×2 (09:27→22:44)
[2018-02-23] MEDS: PANTOPRAZOLE 40 MG/10 ML VIAL IV SCH (09:27)
[2018-02-23] MEDS: BUDESONIDE (INHALATION) 0.5 MG/2 ML NEB NEB SCH ×2 (09:35→18:23)
[2018-02-23] MEDS: OPSUMIT 10 MG NG SCH (09:45)
[2018-02-23] MEDS: fentaNYL Drip 2500mCg/250mlNS 250 ML IV SCH ×2 (09:48→21:53)
[2018-02-23] MEDS: POTASSIUM CHL 20MEQ/100ML 100 ML IV SCH ×2 (09:53→11:24)
[2018-02-23] MEDS: LACTULOSE 20Gm/30ML SOLN GT SCH ×2 (09:53→22:43)
[2018-02-23] MEDS: FONDAPARINUX SOD 2.5mg/0.5ml SYRINGE SC SCH (09:54)
[2018-02-23] MEDS ORDERED: DEXTROSE (50%) 50ML SYRG IV PRN (10:30)
[2018-02-23] MEDS: FUROSEMIDE INJECTION 250 MG in SODIUM CHL 0.9% 225 ML IV SCH ×2 (10:53→17:30)
[2018-02-23] MEDS: INSULIN LANTUS (GLARGINE) 1 /0.01ml (100units/ml) SC SCH ×2 (10:57→22:45)
[2018-02-23] MEDS: InsuLIN REG 1unit/0.01ml Soln (100units/ml) SC SCH ×4 (11:23→23:49)
[2018-02-23] MEDS ORDERED: SODIUM CHLORIDE 0.9% 1,000 ML IV SCH (12:15)
[2018-02-23] MEDS: NOREPINEPHRINE 8 MG/250ML KIT 250 ML IV SCH (12:24)
[2018-02-23] MEDS ORDERED: PROPOFOL 100 ML IV SCH (13:40)
[2018-02-23] MEDS ORDERED: methylPREDNISolone SOD SUCC 40 MG/ML VL IV SCH (18:00)
[2018-02-23] MEDS ORDERED: TPN PER PHARMACY IV NR ×8 (20:00)
[2018-02-23] MEDS: ACETAMINOPHEN 650 mg PER 20 mL UD GT PRN (23:55)
[2018-02-24] VITALS (72 sets, daily range): BP systolic 90–154; BP diastolic 5–86
[2018-02-24] MEDS: FREE WATER GT SCH ×3 (02:01→10:15)
[2018-02-24] MEDS: ACETYLCYSTEINE 20%(200MG/ML) SOL 4ML NEB SCH ×6 (02:18→22:30)
[2018-02-24] MEDS: IPRATROPIUM BROM 0.5 MG/2.5ML INH SOL NEB SCH ×6 (02:18→22:30)
[2018-02-24] MEDS: LEVALBUTEROL HCL 1.25 MG/3 ML NEB NEB SCH ×6 (02:19→22:30)
[2018-02-24] MEDS: NOREPINEPHRINE 8 MG/250ML KIT 250 ML IV SCH ×2 (02:40→16:46)
[2018-02-24 03:43] LABS: Mean Corpuscular Hemoglobin 28.5 pg (28.0-32.0)
[2018-02-24 03:46] LABS: Mean Corpuscular Hgb Conc. 30.7 g/dL (32.0-36.0); Platelet Count (auto) 286 10^3/uL (140-450); Red Blood Cells 3.87 10^6/uL (4.0-5.20); White Blood Cell 24.9 10^3/uL (4.4-10.8)
[2018-02-24 04:13] LABS: Albumin 2.7 g/dL (3.4-5.0); BUN/Creatinine Ratio 168.1; Bilirubin, Total 1.5 mg/dL (0.2-1.0); Calcium 9.3 mg/dL (8.5-10.1); Magnesium 3.4 mg/dL (1.6-2.6); Phosphorus 4.8 mg/dL (2.5-4.90); Total Protein 6.8 g/dL (6.4-8.2)
[2018-02-24] MEDS: InsuLIN REG 1unit/0.01ml Soln (100units/ml) SC SCH ×6 (04:17→23:35)
[2018-02-24] MEDS: ACCU-CHEK COMFORT CURVE STRIP VI SCH ×6 (04:17→23:35)
[2018-02-24 04:23] LABS: Potassium 6.5 mmol/L (3.5-5.1)
[2018-02-24 04:44] LABS: Red Cell Distribution Width 21.6 % (11.8-14.3)
[2018-02-24 04:45] LABS: Basophils % (manual) 0 (0.0-2.0); Blast Cells 0; Eosinophils % (manual) 0 (0-7); Myelocytes % 0; Promyelocytes % 0; Reactive Lymphocytes 0
[2018-02-24] MEDS ORDERED: SODIUM POLYSTYRENE SULF 15GM/60ML SUSP PO ONE (06:00)
[2018-02-24] MEDS ORDERED: InsuLIN REG 1unit/0.01ml Soln (100units/ml) IV ONE (06:00)
[2018-02-24] MEDS ORDERED: FUROSEMIDE 40 MG/4 ML VIAL IV SCH (06:00)
[2018-02-24] MEDS ORDERED: DEXTROSE (50%) 50ML SYRG IV ONE (06:00)
[2018-02-24] MEDS ORDERED: CALCIUM GLUC 4.65meq/50ml D5AE 50 ML IV ONE (06:00)
[2018-02-24] MEDS: NYSTATIN (MOUTH-THROAT) 500,000 UNITS/5 ML SUSP MT SCH ×4 (06:05→21:53)
[2018-02-24] MEDS: METOCLOPRAMIDE HCL 5MG/ml INJ 2ml VIAL IV SCH ×3 (06:05→21:53)
[2018-02-24 06:38] LABS: Band Neutrophils % (manual) 11; Lymphocytes % (manual) 9 (10.0-50.0); Metamyelocytes % 3; Monocytes % (manual) 4 (0-12)
[2018-02-24] MEDS: INSULIN LANTUS (GLARGINE) 1 /0.01ml (100units/ml) SC SCH ×2 (08:04→21:54)
[2018-02-24] MEDS: SILDENAFIL CITRATE 20 MG TAB PO SCH ×3 (08:04→20:04)
[2018-02-24] MEDS: MIDAZOLAM DRIP 50 mg/50mL 50 ML IV SCH ×5 (08:11→23:07)
[2018-02-24] MEDS ORDERED: VANCOMYCIN PER PHARMACY 0 MG IV SCH (08:30)
[2018-02-24] MEDS: OPSUMIT 10 MG NG SCH (10:15)
[2018-02-24] MEDS: MEROPENEM 1gm/20ml IVPUSH 20 ML IV SCH ×2 (10:15→17:36)
[2018-02-24] MEDS: FONDAPARINUX SOD 2.5mg/0.5ml SYRINGE SC SCH (10:15)
[2018-02-24] MEDS: PANTOPRAZOLE 40 MG/10 ML VIAL IV SCH (10:15)
[2018-02-24] MEDS: LEVOTHYROXINE SODIUM 100 MCG/5 ML INJ IV SCH (10:15)
[2018-02-24] MEDS: SODIUM CHLOR 0.9% PF (SALINE LOCK) 10ML VIAL/SYR IV SCH ×2 (10:15→21:53)
[2018-02-24] MEDS: LACTULOSE 20Gm/30ML SOLN GT SCH ×2 (10:15→21:53)
[2018-02-24] MEDS ORDERED: Fibersource Hn 1 Liter GT SCH (10:30)
[2018-02-24 11:24] LABS: BUN/Creatinine Ratio 237.5; Calcium 9.7 mg/dL (8.5-10.1); Potassium 4.2 mmol/L (3.5-5.1)
[2018-02-24] MEDS: VANCOMYCIN 1GM/250ML 250 ML IV SCH ×2 (11:41→23:07)
[2018-02-24] MEDS ORDERED: BISACODYL 10 MG RECT SUPP PR PRN (12:45)
[2018-02-24 12:57] LABS: Urine Bacteria NONE SEEN /hpf (None Seen); Urine Blood 3+ /uL (Negative); Urine Mucus FEW (None Seen); Urine Specific Gravity 1.016 (1.001-1.035); Urine WBC 15 /hpf (0 - 5)
[2018-02-24 13:12] LABS: Creatinine, Urine 10 mg/dL (30.0-125.0)
[2018-02-24] MEDS ORDERED: POTASSIUM CHLORIDE IV NR ×7 (20:00)
[2018-02-24] MEDS ORDERED: SODIUM CHLORIDE IV NR ×7 (20:00)
[2018-02-24] MEDS ORDERED: [UNRECOGNIZED DRUG - OTHER] IV NR ×7 (20:00)
[2018-02-24] MEDS ORDERED: FAT EMULSION IV NR ×7 (20:00)
[2018-02-24] MEDS ORDERED: METO-158 PO (20:15)
[2018-02-25] VITALS (105 sets, daily range): BP systolic 73–106; BP diastolic 16–60
[2018-02-25] MEDS: MIDAZOLAM DRIP 50 mg/50mL 50 ML IV SCH ×6 (01:01→23:15)
[2018-02-25] MEDS: fentaNYL Drip 2500mCg/250mlNS 250 ML IV SCH ×3 (01:01→23:14)
[2018-02-25] MEDS: MEROPENEM 1gm/20ml IVPUSH 20 ML IV SCH ×3 (02:02→18:41)
[2018-02-25] MEDS: ACETYLCYSTEINE 20%(200MG/ML) SOL 4ML NEB SCH ×6 (02:25→22:22)
[2018-02-25] MEDS: IPRATROPIUM BROM 0.5 MG/2.5ML INH SOL NEB SCH ×6 (02:25→22:22)
[2018-02-25] MEDS: LEVALBUTEROL HCL 1.25 MG/3 ML NEB NEB SCH ×6 (02:25→22:22)
[2018-02-25] MEDS: InsuLIN REG 1unit/0.01ml Soln (100units/ml) SC SCH ×6 (04:00→23:58)
[2018-02-25] MEDS: ACCU-CHEK COMFORT CURVE STRIP VI SCH ×6 (04:00→23:58)
[2018-02-25 04:12] LABS: Mean Corpuscular Hemoglobin 28.9 pg (28.0-32.0); White Blood Cell 17.2 10^3/uL (4.4-10.8)
[2018-02-25 04:14] LABS: Hematocrit 32.7 % (36.0-46.0); Mean Corpuscular Hgb Conc. 30.6 g/dL (32.0-36.0); Mean Corpuscular Volume 94.4 fL (80.0-100.0); Platelet Count (auto) 182 10^3/uL (140-450); Red Blood Cells 3.46 10^6/uL (4.0-5.20)
[2018-02-25 04:16] LABS: Red Cell Distribution Width 22.1 % (11.8-14.3)
[2018-02-25 04:17] LABS: Basophils % (manual) 0 (0.0-2.0); Blast Cells 0; Myelocytes % 0; Promyelocytes % 0; Reactive Lymphocytes 0
[2018-02-25 04:32] LABS: Albumin 2.1 g/dL (3.4-5.0); BUN/Creatinine Ratio 267.6; Bilirubin, Total 1.3 mg/dL (0.2-1.0); Calcium 9.2 mg/dL (8.5-10.1); Phosphorus 3.6 mg/dL (2.5-4.90); Potassium 3.4 mmol/L (3.5-5.1); Total Protein 5.9 g/dL (6.4-8.2)
[2018-02-25 04:55] LABS: Eosinophils % (manual) 2 (0-7); Metamyelocytes % 3
[2018-02-25 04:56] LABS: Band Neutrophils % (manual) 28; Lymphocytes % (manual) 8 (10.0-50.0); Monocytes % (manual) 3 (0-12)
[2018-02-25] MEDS: NYSTATIN (MOUTH-THROAT) 500,000 UNITS/5 ML SUSP MT SCH ×4 (06:16→22:14)
[2018-02-25] MEDS: METOCLOPRAMIDE HCL 5MG/ml INJ 2ml VIAL IV SCH ×3 (06:16→22:13)
[2018-02-25] MEDS: INSULIN LANTUS (GLARGINE) 1 /0.01ml (100units/ml) SC SCH ×2 (06:20→22:14)
[2018-02-25] MEDS ORDERED: POTASSIUM CHL 20MEQ/100ML 100 ML IV ONE (09:30)
[2018-02-25] MEDS: PANTOPRAZOLE 40 MG/10 ML VIAL IV SCH (10:58)
[2018-02-25] MEDS: LEVOTHYROXINE SODIUM 100 MCG/5 ML INJ IV SCH (10:59)
[2018-02-25] MEDS: VANCOMYCIN 1GM/250ML 250 ML IV SCH ×2 (10:59→23:00)
[2018-02-25] MEDS: LACTULOSE 20Gm/30ML SOLN GT SCH ×2 (11:00→22:13)
[2018-02-25] MEDS: FONDAPARINUX SOD 2.5mg/0.5ml SYRINGE SC SCH (11:01)
[2018-02-25] MEDS: SILDENAFIL CITRATE 20 MG TAB PO SCH ×3 (11:01→20:51)
[2018-02-25] MEDS: SODIUM CHLOR 0.9% PF (SALINE LOCK) 10ML VIAL/SYR IV SCH ×2 (11:02→22:13)
[2018-02-25] MEDS: OPSUMIT 10 MG NG SCH (11:03)
[2018-02-25] MEDS ORDERED: ALBUMIN 25% 100 ML IV ONE ×3 (11:30→20:49)
[2018-02-25] MEDS ORDERED: SOD CHL 0.45% 500 ML IV ONE (11:30)
[2018-02-25] MEDS ORDERED: FLEET MINERAL OIL ENEMA 133 ML PR ONE (11:30)
[2018-02-25] MEDS ORDERED: FAT EMULSION IV NR ×8 (20:00)
[2018-02-25] MEDS ORDERED: POTASSIUM CHLORIDE IV NR ×8 (20:00)
[2018-02-25] MEDS ORDERED: [UNRECOGNIZED DRUG - OTHER] IV NR ×8 (20:00)
[2018-02-25] MEDS ORDERED: FUROSEMIDE 40 MG/4 ML VIAL IV ONE (20:00)
[2018-02-25] MEDS ORDERED: POTASSIUM PHOSPHATE IV NR ×8 (20:00)
[2018-02-25] MEDS: POTASSIUM CHL 20MEQ/100ML 100 ML IV SCH (23:15)
[2018-02-26] VITALS (67 sets, daily range): BP systolic 83–126; BP diastolic 34–67
[2018-02-26] MEDS: fentaNYL Drip 2500mCg/250mlNS 250 ML IV SCH ×2 (00:01→10:09)
[2018-02-26] MEDS: MEROPENEM 1gm/20ml IVPUSH 20 ML IV SCH ×2 (02:05→09:57)
[2018-02-26] MEDS: ACETYLCYSTEINE 20%(200MG/ML) SOL 4ML NEB SCH ×4 (02:42→14:31)
[2018-02-26] MEDS: IPRATROPIUM BROM 0.5 MG/2.5ML INH SOL NEB SCH ×4 (02:42→14:31)
[2018-02-26] MEDS: LEVALBUTEROL HCL 1.25 MG/3 ML NEB NEB SCH ×4 (02:42→14:31)
[2018-02-26] MEDS: MIDAZOLAM DRIP 50 mg/50mL 50 ML IV SCH ×5 (03:11→16:19)
[2018-02-26] MEDS: NOREPINEPHRINE 8 MG/250ML KIT 250 ML IV SCH ×2 (03:12→08:27)
[2018-02-26 03:51] LABS: Albumin 2.4 g/dL (3.4-5.0); BUN/Creatinine Ratio 147.1; Bilirubin, Total 1.5 mg/dL (0.2-1.0); Calcium 8.1 mg/dL (8.5-10.1); Magnesium 2.7 mg/dL (1.6-2.6); Phosphorus 5.8 mg/dL (2.5-4.90); Potassium 5.1 mmol/L (3.5-5.1); Total Protein 5.6 g/dL (6.4-8.2)
[2018-02-26 04:08] LABS: Hematocrit 24.6 % (36.0-46.0); Hemoglobin 7.6 g/dL (12.2-16.2); Mean Corpuscular Hemoglobin 29.4 pg (28.0-32.0); Mean Corpuscular Hgb Conc. 30.8 g/dL (32.0-36.0); Mean Corpuscular Volume 95.3 fL (80.0-100.0); Platelet Count (auto) 155 10^3/uL (140-450); Red Blood Cells 2.58 10^6/uL (4.0-5.20); White Blood Cell 19.3 10^3/uL (4.4-10.8)
[2018-02-26] MEDS: InsuLIN REG 1unit/0.01ml Soln (100units/ml) SC SCH ×3 (04:37→12:40)
[2018-02-26] MEDS: ACCU-CHEK COMFORT CURVE STRIP VI SCH ×4 (04:38→16:00)
[2018-02-26 04:44] LABS: Red Cell Distribution Width 21.1 % (11.8-14.3)
[2018-02-26 04:45] LABS: Basophils % (manual) 0 (0.0-2.0); Blast Cells 0; Metamyelocytes % 0; Promyelocytes % 0; Reactive Lymphocytes 0
[2018-02-26] MEDS: POTASSIUM CHL 20MEQ/100ML 100 ML IV SCH (05:55)
[2018-02-26] MEDS: METOCLOPRAMIDE HCL 5MG/ml INJ 2ml VIAL IV SCH ×2 (06:00→14:31)
[2018-02-26] MEDS: NYSTATIN (MOUTH-THROAT) 500,000 UNITS/5 ML SUSP MT SCH ×2 (07:04→12:41)
[2018-02-26] MEDS: INSULIN LANTUS (GLARGINE) 1 /0.01ml (100units/ml) SC SCH (07:04)
[2018-02-26] MEDS: SILDENAFIL CITRATE 20 MG TAB PO SCH (08:11)
[2018-02-26] MEDS: ACETAMINOPHEN 650 mg PER 20 mL UD GT PRN (08:12)
[2018-02-26 08:44] LABS: Band Neutrophils % (manual) 19; Eosinophils % (manual) 1 (0-7); Lymphocytes % (manual) 6 (10.0-50.0); Monocytes % (manual) 1 (0-12); Myelocytes % 2
[2018-02-26] MEDS ORDERED: HYDROcodone-ACET 5/325MG TAB PO PRN (09:15)
[2018-02-26] MEDS: PANTOPRAZOLE 40 MG/10 ML VIAL IV SCH (09:57)
[2018-02-26] MEDS: SODIUM CHLOR 0.9% PF (SALINE LOCK) 10ML VIAL/SYR IV SCH (09:57)
[2018-02-26] MEDS: LACTULOSE 20Gm/30ML SOLN GT SCH (09:57)
[2018-02-26] MEDS: FONDAPARINUX SOD 2.5mg/0.5ml SYRINGE SC SCH (09:59)
[2018-02-26] MEDS ORDERED: OPSUMIT 10 MG NG SCH (10:00)
[2018-02-26] MEDS: LEVOTHYROXINE SODIUM 100 MCG/5 ML INJ IV SCH (10:00)
[2018-02-26] MEDS ORDERED: MACITENTAN 10 MG NG SCH (10:00)
[2018-02-26] MEDS ORDERED: SODIUM CHLORIDE 0.9% 1,000 ML IV ONE (10:45)
[2018-02-26] MEDS ORDERED: VANCOMYCIN 1GM/250ML 250 ML IV SCH (11:00)
[2018-02-26] MEDS ORDERED: PHENYLEPHRINE IV 250 ML IV ONE ×2 (11:50→15:04)
[2018-02-26] MEDS: PHENYLEPHRINE INJ 20 MG in SODIUM CHL 0.9% 250 ML IV SCH ×2 (11:54→15:01)
[2018-02-26] MEDS ORDERED: FUROSEMIDE 40 MG/4 ML VIAL IV ONE (12:45)
[2018-02-26] MEDS ORDERED: NOREPINEPHRINE BITARTRATE 32 MG in D5W 5% 218 ML IV SCH (15:10)
[2018-02-26] MEDS ORDERED: PHENYLEPHRINE INJ 80 MG in SODIUM CHL 0.9% 250 ML IV SCH (15:10)
[2018-02-26] MEDS ORDERED: TPN PER PHARMACY IV NR ×7 (20:00)
== END 2018-02-26 20:30 | disposition expired | DRG 121 ==
LOC: ER 19:57 → TELE 19:58 → ICU WEST 01-29 04:05
PROVIDERS: ADMIT Nurse Practitioner; ATTEND Internal Medicine
PROC: 5A1955Z Respiratory Ventilation, Greater than 96 Consecutive Hours (ICD-10-PCS; principal; 2018-01-28)
PROC: 0BH17EZ Insertion of Endotracheal Airway into Trachea, Via Natural or Artificial Opening (ICD-10-PCS; 2018-01-28)
PROC: 5A09357 Assistance with Respiratory Ventilation, Less than 24 Consecutive Hours, Continuous Positive Airway Pressure (ICD-10-PCS; 2018-01-28)
PROC: 02HV33Z Insertion of Infusion Device into Superior Vena Cava, Percutaneous Approach (ICD-10-PCS; 2018-01-29)
PROC: 04HY32Z Insertion of Monitoring Device into Lower Artery, Percutaneous Approach (ICD-10-PCS; 2018-02-05)
PROC: 4A023N6 Measurement of Cardiac Sampling and Pressure, Right Heart, Percutaneous Approach (ICD-10-PCS; 2018-02-05)
PROC: B31S1ZZ Fluoroscopy of Right Pulmonary Artery using Low Osmolar Contrast (ICD-10-PCS; 2018-02-05)
PROC: 02HQ32Z Insertion of Monitoring Device into Right Pulmonary Artery, Percutaneous Approach (ICD-10-PCS; 2018-02-05)
PROC: 4A133B3 Monitoring of Arterial Pressure, Pulmonary, Percutaneous Approach (ICD-10-PCS; 2018-02-05)
PROC: 4A1239Z Monitoring of Cardiac Output, Percutaneous Approach (ICD-10-PCS; 2018-02-05)
PROC: 0BJ08ZZ Inspection of Tracheobronchial Tree, Via Natural or Artificial Opening Endoscopic (ICD-10-PCS; 2018-02-06)
PROC: 0B9D8ZZ Drainage of Right Middle Lung Lobe, Via Natural or Artificial Opening Endoscopic (ICD-10-PCS; 2018-02-18)
PROC: 0BCB8ZZ Extirpation of Matter from Left Lower Lobe Bronchus, Via Natural or Artificial Opening Endoscopic (ICD-10-PCS; 2018-02-18)
PROC: 0B9F8ZX Drainage of Right Lower Lung Lobe, Via Natural or Artificial Opening Endoscopic, Diagnostic (ICD-10-PCS; 2018-02-18)
DX: J96.21 Acute and chronic respiratory failure with hypoxia (principal); A41.9 Sepsis, unspecified organism; G93.41 Metabolic encephalopathy; I50.33 Acute on chronic diastolic (congestive) heart failure; E43 Unspecified severe protein-calorie malnutrition; J18.9 Pneumonia, unspecified organism; Z99.11 Dependence on respirator [ventilator] status; J44.0 Chronic obstructive pulmonary disease with (acute) lower respiratory infection; I11.0 Hypertensive heart disease with heart failure; E87.4 Mixed disorder of acid-base balance; I27.0 Primary pulmonary hypertension; E44.0 Moderate protein-calorie malnutrition; E87.0 Hyperosmolality and hypernatremia; J44.1 Chronic obstructive pulmonary disease with (acute) exacerbation; I31.3 Pericardial effusion (noninflammatory); D69.6 Thrombocytopenia, unspecified; J96.22 Acute and chronic respiratory failure with hypercapnia; E03.9 Hypothyroidism, unspecified; E11.65 Type 2 diabetes mellitus with hyperglycemia; E66.2 Morbid (severe) obesity with alveolar hypoventilation; E78.5 Hyperlipidemia, unspecified; E87.5 Hyperkalemia; E87.6 Hypokalemia; F12.90 Cannabis use, unspecified, uncomplicated; F17.210 Nicotine dependence, cigarettes, uncomplicated; F41.9 Anxiety disorder, unspecified; G83.9 Paralytic syndrome, unspecified; I46.9 Cardiac arrest, cause unspecified; I49.3 Ventricular premature depolarization; I50.82 Biventricular heart failure; K56.7 Ileus, unspecified; K76.89 Other specified diseases of liver; K92.2 Gastrointestinal hemorrhage, unspecified; N28.1 Cyst of kidney, acquired; T17.890A Other foreign object in other parts of respiratory tract causing asphyxiation, initial encounter; T38.0X5A Adverse effect of glucocorticoids and synthetic analogues, initial encounter; T50.2X5A Adverse effect of carbonic-anhydrase inhibitors, benzothiadiazides and other diuretics, initial encounter; Z66 Do not resuscitate; Z68.43 Body mass index [BMI] 50.0-59.9, adult; Z82.49 Family history of ischemic heart disease and other diseases of the circulatory system; Z79.899 Other long term (current) drug therapy; Z79.82 Long term (current) use of aspirin; E87.1 Hypo-osmolality and hyponatremia
CPT/HCPCS: 36415; 36569; 36600; 51702; 71045; 71275; 74018; 74176; 76604; 76775; 76937; 80048; 80053; 80202; 80307; 81001; 82040; 82533; 82570; 82805; 82962; 83036; 83735; 83880; 83935; 84100; 84132; 84133; 84443; 84478; 84484; 85007; 85025; 85027; 85379; 85610; 85730; 86022; 86141; 86850; 86900; 86901; 87040; 87070; 87077; 87081; 87086; 87186; 87205; 93005; 93306; 93970; 94002; 94003; 94640; 94660; 94668; 96372; 96374; 96375; 96379; C1751; C9113; J0171; J0610; J1450; J1652; J1815; J1956; J2248; J2250; J2704; J3480; J3490; J7060; J7131; P9047; Q0162